=== PATIENT | male | born 1975 | race Caucasian/White ===

== ENCOUNTER 2018-01-07 15:29 | Emergency (ER) | payer OTHER ==
--- NOTE | 2018-01-07 16:54 | Emergency Department Report ---
HPI - General Chief Complaint: Upper Respiratory Infection Time Seen by Provider: 01/07/18 16:53 - HPI HPI: Patient presents to the emergency room with complaints of rash and cough 2 weeks. Patient said he has a rash on his body and he is resided in detention and they started him on steroid but only given for 2 days. He said rash spread and he is very itchy. He states that he is having chills and feeling like he has a fever. He states that he has nasal congestion runny nose and a dry cough that they have been treated for 2 weeks but not placed on any antibiotic. Patient denies having any x-ray. He is having generalized aching in 7 out of 10 which. Patient denies any new medication except he said he took some Motrin a couple weeks ago but he had taken Motrin in the past. He denies any medical problem or any autoimmune disease or immunodeficiency. ED Past Medical Hx - Past Medical History Previous Medical History?: Yes - Surgical History Past Surgical History?: No - Family History Family history: no significant - Social History Smoking Status: Never Smoker Substance Use Type: None - Medications Home Medications: Home Medications Medication Instructions Recorded Confirmed Last Taken Type Colloidal Oatmeal [Eucerin Eczema 226 gm TP BID #2 cream..g. 01/07/18 Unknown Rx Relief] Prednisone [predniSONE 10 mg 10 mg PO .TAPER #42 tab.ds.pk 01/07/18 Unknown Rx (6-Day Pack, 21 Tabs)] Sulfamethoxazole/Trimethoprim 1 each PO DAILY #10 tablet 01/07/18 Unknown Rx [Bactrim DS TAB] ED Review of Systems ROS: Stated complaint: RASH/FEVER Other details as noted in HPI Comment: All other systems reviewed and negative Constitutional: chills, fever Eyes: denies: eye pain, eye discharge ENT: congestion. denies: ear pain, throat pain Respiratory: cough. denies: orthopnea, shortness of breath, SOB with exertion, SOB at rest, stridor, wheezing Cardiovascular: denies: chest pain, palpitations, dyspnea on exertion, edema, syncope, paroxysmal nocturnal dyspnea Gastrointestinal: denies: abdominal pain, nausea, vomiting Genitourinary: denies: dysuria, hematuria Musculoskeletal: arthralgia. denies: back pain, joint swelling, myalgia Skin: rash, pruritus Neurological: denies: headache Physical Exam - Physical Exam Vital Signs: Vital Signs 01/07/18 15:47 Temperature 99.9 F H Pulse Rate 108 H Respiratory 16 Rate Blood Pressure 118/58 O2 Sat by Pulse 96 Oximetry Vital Signs 01/07/18 01/07/18 01/07/18 15:47 19:38 19:46 Temperature 99.9 F H 101.5 F H Pulse Rate 108 H 103 H Respiratory 16 18 18 Rate Blood Pressure 118/58 Blood Pressure 130/61 [Left] O2 Sat by Pulse 96 100 Oximetry Vital Signs 01/07/18 01/07/18 01/07/18 15:47 19:38 19:46 Temperature 99.9 F H 101.5 F H Pulse Rate 108 H 103 H Respiratory 16 18 18 Rate Blood Pressure 118/58 Blood Pressure 130/61 [Left] O2 Sat by Pulse 96 100 Oximetry 01/07/18 20:39 Temperature 99.7 F H Pulse Rate 101 H Respiratory 20 Rate Blood Pressure Blood Pressure 131/75 [Left] O2 Sat by Pulse 99 Oximetry General: This is a 42-year-old male that is nontoxic in appearance. Physical Exam: Head: Normocephalic, atraumatic, no abrasion, no bruising and no contusion. Eyes: Biateral pupils equal and reactive to light, bilateral EOM intact.. Bilateral conjunctival and sclera without injection, normal accommodation. No nystagmus Mouth: Mucosa dry, no pharyngeal exudate or erythema. No peritonsillar abscesses. Uvula is midline and oral airways patent. Ears: Bilateral TMs are congested . Bilateral EAC without any redness swelling or drainage. No mastoid bone tenderness Nose: Bilateral nasal mucosa congested with clear drainage,Maxillary and frontal sinuses non-tender to palpate. Neck: Supple, No Cervical adenopathy, full range of motion and no C-spine tenderness. No swelling or tracheal deviation normal reflexes Cardiovascular: S1, S2. Tachycardic at 108. Regular rhythm No murmur. Capillary refill is less then 3 seconds. Lungs: Clear to auscultate bilaterally. No rhonchi, wheezes or rales. No chest wall tenderness. No chest contusion. No bruising to chest. Dry cough MSK: Strength 5/5 in all extremities. No joint deformity or crepitus. Normal inspection. Full range of motion to all extremities. No laceration, abrasion or ecchymotic area noted. Abdomen: Non-tender to palpate in all quadrants, no guarding or rebound tenderness, positive bowel sounds in all quadrants. No CVA tenderness. No hernia, bruit or mass. No rigidity or distention. Extremities: No clubbing, cyanosis or edema. +2 pulses. No neurovascular compromise Skin: Patient with scaling, generalize to body surface. Areas of erythema that is warm to touch. Noted areas the patient has been itching extensively. No drainage noted. No indurated areas. Some areas to the skin with erythema is tender to palpate. Neurological: GCS at 15, Pt is alert and oriented 3 speech is clear . Bilateral hand engineer second assistant strong and equal. Normal gait. Negative Romberg and no pronator drift. Normal Reflexes. No motor or sensory deficit Back: No vertebral tenderness, no paraspinal tenderness. Ambulates without any difficulties. Psych: Normal mood and behavior ED Course Vital Signs 01/07/18 15:47 Temperature 99.9 F H Pulse Rate 108 H Respiratory 16 Rate Blood Pressure 118/58 O2 Sat by Pulse 96 Oximetry Vital Signs 01/07/18 01/07/18 01/07/18 15:47 19:38 19:46 Temperature 99.9 F H 101.5 F H Pulse Rate 108 H 103 H Respiratory 16 18 18 Rate Blood Pressure 118/58 Blood Pressure 130/61 [Left] O2 Sat by Pulse 96 100 Oximetry - Reevaluation(s) Reevaluation #1: 01/07/18 19:05 Patient is given normal saline 1 L initially and emergency room upon arrival. He was given Solu-Medrol 125 mg IV, fluconazole for injured milligrams IV, Benadryl 50 mg IV and clindamycin 900 mg IV after blood cultures and labs were drawn. Itching has decreased. I collaborated with Dr. Parrish and patient presentation, clinical findings and and treatment plan and is in agreement. Reevaluation #2: 01/07/18 19:45 Patient lactic acid came back at 2.2 and sepsis protocol called since patient temperature is increased in now greater than 101. Heart rate is a 103. Sepsis protocol initiated. Patient given IV fluid. Dr. Medeiros has left for the day therefore I spoke with Dr. Moreau who spoke with Dr. Medeiros via followed and it was decided the patient will be admitted. Dr. Moreau will notify Dr. Nair who is the hospitalist. Patient white count is elevated with other minimal abnormalities and CBC, minimal abnormalities and chemistry, minimal abnormalities in the urine. Patient was given additional Tylenol 975 mg by mouth for fever. Reevaluation #3: 01/07/18 20:42 Dr. Nair's outpatient and decided the patient is with psoriasis, generalized and can be discharged home. He spoke with patient at [facility]. Patient is in custody of [facility]. he evaluated and decided that patient can be discharged home on medication Reevaluation #4: 01/07/18 20:48 Vital signs are better. Patient aware that he will be discharged back to facility. ED Medical Decision Making - Lab Data Result diagrams: 01/07/18 18:34 01/07/18 18:34 Lab Results 01/07/18 01/07/18 01/07/18 Range/Units 17:45 18:34 18:34 WBC 13.7 H (4.5-11.0) K/mm3 RBC 5.24 H (3.65-5.03) M/mm3 Hgb 15.0 (11.8-15.2) gm/dl Hct 46.5 H (35.5-45.6) % MCV 89 (84-94) fl MCH 29 (28-32) pg MCHC 32 (32-34) % RDW 14.0 (13.2-15.2) % Plt Count 360 (140-440) K/mm3 Lymph % (Auto) 18.9 (13.4-35.0) % [place] % (Auto) 15.7 H (0.0-7.3) % Eos % (Auto) 3.3 (0.0-4.3) % Baso % (Auto) 0.1 (0.0-1.8) % Lymph # 2.6 (1.2-5.4) K/mm3 [place] # 2.2 H (0.0-0.8) K/mm3 Eos # 0.5 H (0.0-0.4) K/mm3 Baso # 0.0 (0.0-0.1) K/mm3 Seg Neutrophils % 62.0 (40.0-70.0) % Seg Neutrophils # 8.5 H (1.8-7.7) K/mm3 PT (12.2-14.9) Sec. INR (0.87-1.13) Sodium 134 L (137-145) mmol/L Potassium 4.5 (3.6-5.0) mmol/L Chloride 94.7 L (98-107) mmol/L Carbon Dioxide 26 (22-30) mmol/L Anion Gap 18 mmol/L BUN 13 (9-20) mg/dL Creatinine 1.0 (0.8-1.5) mg/dL Estimated GFR > 60 ml/min BUN/Creatinine Ratio 13 % Glucose 136 H (75-100) mg/dL Lactic Acid (0.7-2.0) mmol/L Calcium 8.3 L (8.4-10.2) mg/dL Total Bilirubin 0.60 (0.1-1.2) mg/dL AST 37 (5-40) units/L ALT 81 H (7-56) units/L Alkaline Phosphatase 47 (35-129) units/L Total Protein 6.2 L (6.3-8.2) g/dL Albumin 3.5 L (3.9-5) g/dL Albumin/Globulin Ratio 1.3 % Urine Color Vilma (Yellow) Urine Turbidity Clear (Clear) Urine pH 5.0 (5.0-7.0) Ur Specific [place] 1.027 (1.003-1.030) Urine Protein 30 mg/dl (Negative) mg/dL Urine Glucose (UA) Neg (Negative) mg/dL Urine Ketones Tr (Negative) mg/dL Urine Blood Neg (Negative) Urine Nitrite Neg (Negative) Urine Bilirubin Neg (Negative) Urine Urobilinogen 4.0 (<2.0) mg/dL Ur Leukocyte Esterase Neg (Negative) Urine WBC (Auto) 3.0 (0.0-6.0) /HPF Urine RBC (Auto) 2.0 (0.0-6.0) /HPF Urine Bacteria (Auto) 1+ (Negative) /HPF Urine Mucus 2+ /HPF 01/07/18 01/07/18 Range/Units 18:34 20:00 WBC (4.5-11.0) K/mm3 RBC (3.65-5.03) M/mm3 Hgb (11.8-15.2) gm/dl Hct (35.5-45.6) % MCV (84-94) fl MCH (28-32) pg MCHC (32-34) % RDW (13.2-15.2) % Plt Count (140-440) K/mm3 Lymph % (Auto) (13.4-35.0) % [place] % (Auto) (0.0-7.3) % Eos % (Auto) (0.0-4.3) % Baso % (Auto) (0.0-1.8) % Lymph # (1.2-5.4) K/mm3 [place] # (0.0-0.8) K/mm3 Eos # (0.0-0.4) K/mm3 Baso # (0.0-0.1) K/mm3 Seg Neutrophils % (40.0-70.0) % Seg Neutrophils # (1.8-7.7) K/mm3 PT 14.6 (12.2-14.9) Sec. INR 1.08 (0.87-1.13) Sodium (137-145) mmol/L Potassium (3.6-5.0) mmol/L Chloride (98-107) mmol/L Carbon Dioxide (22-30) mmol/L Anion Gap mmol/L BUN (9-20) mg/dL Creatinine (0.8-1.5) mg/dL Estimated GFR ml/min BUN/Creatinine Ratio % Glucose (75-100) mg/dL Lactic Acid 2.20 H* (0.7-2.0) mmol/L Calcium (8.4-10.2) mg/dL Total Bilirubin (0.1-1.2) mg/dL AST (5-40) units/L ALT (7-56) units/L Alkaline Phosphatase (35-129) units/L Total Protein (6.3-8.2) g/dL Albumin (3.9-5) g/dL Albumin/Globulin Ratio % Urine Color (Yellow) Urine Turbidity (Clear) Urine pH (5.0-7.0) Ur Specific [place] (1.003-1.030) Urine Protein (Negative) mg/dL Urine Glucose (UA) (Negative) mg/dL Urine Ketones (Negative) mg/dL Urine Blood (Negative) Urine Nitrite (Negative) Urine Bilirubin (Negative) Urine Urobilinogen (<2.0) mg/dL Ur Leukocyte Esterase (Negative) Urine WBC (Auto) (0.0-6.0) /HPF Urine RBC (Auto) (0.0-6.0) /HPF Urine Bacteria (Auto) (Negative) /HPF Urine Mucus /HPF Blood cultures and Urine culture pending - Radiology Data Radiology results: report reviewed Chest x-ray revealed no acute cardiopulmonary findings - Medical Decision Making ED course: Patient here from the care home facility supervised by fire prevention officer and report that he's been having cold and cough 2 weeks with fever and chills and also developed a rash that is very itchy all over his body and it spreading. Patient and with widespread rash confluent in nature, scaling and appears to have superimposed cellulitis. Patient was given Benadryl 50 mg IV to help with itching, Solu-Medrol 125 mg IV, IV fluid normal saline started. Patient lab work was abnormal to include lactic acid is 2.2 and he was given an 2 L of IV fluid, Tylenol 975 mg IV because temperature was greater than 101 which is higher than when he came in. I spoke with Dr. Moreau regarding patient condition and she spoke with Dr. Nair who saw patient and decided the patient can go home on steroids, antibiotic and emollient. Patient remained stable throughout ED course. Please refer to laboratory section for details on lab and radiology section for details on chest x-ray. Patient's CBC was abnormal value with elevated white count and other minimal abnormality, chemistry with minimal abnormalities, urinalysis with minimal abnormalities. Blood cultures and urine culture sent. Coags are stable and venous pH is pending. Patient appears to be stable and vital signs are stable. Patient was given information on laboratory results and also on chest x-ray results and he voiced understanding and Patient with upper respiratory with cough and congestion, acute rash with cellulitis, pruritic dermatitis, fever and chills and generalized aching.Lactic acidosis and leukocytosis. Critical care attestation.: If time is entered above; I have spent that time in minutes in the direct care of this critically ill patient, excluding procedure time. ED Disposition Clinical Impression: Rash and nonspecific skin eruption, Arthralgia of multiple sites, bilateral, Fever and chills, Pruritic dermatitis, Lactic acid acidosis, URI with cough and congestion Cellulitis Qualifiers: Site of cellulitis: unspecified site Qualified Code(s): L03.90 - Cellulitis, unspecified Leukocytosis, unspecified Qualifiers: Leukocytosis type: unspecified Qualified Code(s): D72.829 - Elevated white blood cell count, unspecified Disposition: OP ADMIT IP TO THIS HOSP Is pt being admited?: Yes Does the pt Need Aspirin: No Condition: Stable Prescriptions: Colloidal Oatmeal [Eucerin Eczema Relief] 226 gm TP BID #2 cream..g. Prednisone [predniSONE 10 mg (6-Day Pack, 21 Tabs)] 10 mg PO .TAPER #42 tab.ds.pk Sulfamethoxazole/Trimethoprim [Bactrim DS TAB] 1 each PO DAILY #10 tablet Referrals: PRIMARY CARE, [Primary Care Provider] - 3-5 Days
[2018-01-07] MEDS ORDERED: VIAFLEX EMPTY CONTAINER IV ONE ×2 (17:42→17:46)
[2018-01-07] MEDS ORDERED: DIFLUCAN IV ONE ×2 (17:42→17:46)
[2018-01-07] MEDS ORDERED: BENADRYL IV ONE (17:42)
[2018-01-07] MEDS ORDERED: NACL 0.9% 1000 ML 1,000 ML IV ONE ×2 (17:42→19:53)
[2018-01-07] MEDS ORDERED: CLEOCIN 900 MG/50 mL 900 MG/50 ML BAG IV ONE (17:44)
[2018-01-07 18:49] LABS: Basophils % (Auto) 0.1 % (0.0-1.8); Eosinophils # (Auto) 0.5 K/mm3 (0.0-0.4); Eosinophils % (Auto) 3.3 % (0.0-4.3); Hematocrit 46.5 % (35.5-45.6); Lymphocytes # (Auto) 2.6 K/mm3 (1.2-5.4); Lymphocytes % (Auto) 18.9 % (13.4-35.0); Mean Corpuscular HGB Conc 32 % (32-34); Mean Corpuscular Hemoglobin 29 pg (28-32); Mean Corpuscular Volume 89 fl (84-94); Monocytes # (Auto) 2.2 K/mm3 (0.0-0.8); Monocytes % (Auto) 15.7 % (0.0-7.3); Platelet Count 360 K/mm3 (140-440); Red Blood Count 5.24 M/mm3 (3.65-5.03)
--- NOTE | 2018-01-07 18:52 | XRay Report ---
FINAL REPORT PROCEDURE: Chest. TECHNIQUE: PA and lateral views. HISTORY: cough and fever x 2 weeks COMPARISON: None. FINDINGS: The heart and mediastinum appear normal. The lungs are clear and well expanded. There are no pleural effusions. The soft tissues and regional skeleton are unremarkable. IMPRESSION: No evidence of acute disease.
[2018-01-07 19:00] LABS: Bacteria,Urine 1+ /HPF (Negative); Bilirubin,Urine NEG (Negative); Blood,Urine NEG (Negative); Color,Urine Amber (Yellow); Mucus,Urine 2+ /HPF
[2018-01-07] MEDS ORDERED: DIFLUCAN 200 ML IV ONE (19:00)
[2018-01-07 19:14] LABS: Alanine Aminotransferase 81 units/L (7-56); Albumin 3.5 g/dL (3.9-5); BUN/Creatinine Ratio 13; Blood Urea Nitrogen 13 mg/dL (9-20); Calcium 8.3 mg/dL (8.4-10.2); Hemolysis Index 0
[2018-01-07] MEDS ORDERED: TYLENOL ONE (19:43)
[2018-01-07] MEDS ORDERED: TYLENOL PO ONE (19:43)
--- NOTE | 2018-01-07 20:20 | History and Physical Report ---
Medications and Allergies Allergies Allergy/AdvReac Type Severity Reaction Status Date / Time ibuprofen Allergy Hives Verified 01/07/18 15:46 Home Medications Medication Instructions Recorded Confirmed Last Taken Type Colloidal Oatmeal [Eucerin Eczema 226 gm TP BID #2 cream..g. 01/07/18 Unknown Rx Relief] Prednisone [predniSONE 10 mg 10 mg PO .TAPER #42 tab.ds.pk 01/07/18 Unknown Rx (6-Day Pack, 21 Tabs)] Sulfamethoxazole/Trimethoprim 1 each PO DAILY #10 tablet 01/07/18 Unknown Rx [Bactrim DS TAB] Active Meds: Active Medications Fluconazole (Diflucan) 200 mls @ 100 mls/hr IV ONCE ONE Stop: 01/07/18 20:59 Last Admin: 01/07/18 19:15 Dose: 100 mls/hr Sodium Chloride (Nacl 0.9% 1000 Ml) 1,000 mls @ 999 mls/hr IV BOLUS ONE Stop: 01/07/18 20:53 Last Admin: 01/07/18 20:00 Dose: 999 mls/hr Exam - Constitutional Vitals: Temp Pulse Resp BP Pulse Ox 101.5 F H 103 H 18 130/61 100 01/07/18 19:38 01/07/18 19:38 01/07/18 19:46 01/07/18 19:38 01/07/18 19:38 Results - Labs CBC & Chem 7: 01/07/18 18:34 01/07/18 18:34 Labs: Abnormal lab results 01/07/18 01/07/18 01/07/18 Range/Units 18:34 18:34 18:34 WBC 13.7 H (4.5-11.0) K/mm3 RBC 5.24 H (3.65-5.03) M/mm3 Hct 46.5 H (35.5-45.6) % [place] % (Auto) 15.7 H (0.0-7.3) % [place] # 2.2 H (0.0-0.8) K/mm3 Eos # 0.5 H (0.0-0.4) K/mm3 Seg Neutrophils # 8.5 H (1.8-7.7) K/mm3 Sodium 134 L (137-145) mmol/L Chloride 94.7 L (98-107) mmol/L Glucose 136 H (75-100) mg/dL Lactic Acid 2.20 H* (0.7-2.0) mmol/L Calcium 8.3 L (8.4-10.2) mg/dL ALT 81 H (7-56) units/L Total Protein 6.2 L (6.3-8.2) g/dL Albumin 3.5 L (3.9-5) g/dL
[2018-01-07 20:21] LABS: INR 1.08 (0.87-1.13)
[2018-01-07 20:41] VITALS: BP 131/75
== END 2018-01-07 21:15 ==
LOC: ED 15:29
DX: E87.2 Acidosis (principal); J06.9 Acute upper respiratory infection, unspecified; D72.829 Elevated white blood cell count, unspecified; R21 Rash and other nonspecific skin eruption; M25.50 Pain in unspecified joint; L03.90 Cellulitis, unspecified
CPT/HCPCS: 36415; 71046; 80053; 81001; 82140; 85025; 85610; 87040; 87086; 96361; 96365; 96367; 96375; 99284; J1200; J1450; J2930; J7030

== ENCOUNTER 2018-01-22 22:32 | Inpatient (IN) | payer OTHER ==
[2018-01-22] MEDS ORDERED: NACL 0.9% 500 ML 500 ML IV ONE (22:47)
[2018-01-22 23:40] LABS: INR 1.13 (0.87-1.13)
[2018-01-22 23:45] LABS: Hematocrit 47.3 % (35.5-45.6); Hemoglobin 15.5 gm/dl (11.8-15.2); Mean Corpuscular HGB Conc 33 % (32-34); Mean Corpuscular Hemoglobin 29 pg (28-32); Mean Corpuscular Volume 89 fl (84-94); Platelet Count 324 K/mm3 (140-440); Red Blood Count 5.32 M/mm3 (3.65-5.03); Red Cell Distribution Width 14.3 % (13.2-15.2)
[2018-01-22 23:50] LABS: Alanine Aminotransferase 25 units/L (7-56); Albumin 3.5 g/dL (3.9-5); BUN/Creatinine Ratio 14; Blood Urea Nitrogen 15 mg/dL (9-20); Calcium 8.5 mg/dL (8.4-10.2); Hemolysis Index 11
--- NOTE | 2018-01-22 23:52 | XRay Report ---
FINAL REPORT PROCEDURE: Portable AP chest x-ray TECHNIQUE: Chest radiograph portable AP view. CPT 40292 HISTORY: sepsis protocol COMPARISON: Prior chest x-ray 01/07/2018 FINDINGS: Heart: Normal. Mediastinum/Vessels: Normal. Lungs/Pleural space: Normal. Bony thorax: No acute osseous abnormality. Life support devices: None. IMPRESSION: No acute cardiopulmonary abnormality.
[2018-01-23] MEDS ORDERED: NACL 0.9% 1000 ML IV ONE (00:34)
[2018-01-23] MEDS ORDERED: ZOFRAN IV ONE (00:37)
--- NOTE | 2018-01-23 01:48 | Emergency Department Report ---
HPI - General Chief Complaint: Fever Time Seen by Provider: 01/23/18 00:23 - HPI HPI: Room 19 The patient is a 42-year-old male presenting with chief complaint of rash and fever. The patient states 1.5 months ago after taking pain medication for back and shoulder he developed a rash on bilateral upper extremities and bilateral lower extremities within the week the rash began to encompass his entire body. The patient states she's been to the ED twice for evaluation with his rash is only worsened. The patient complains of weakness for the past 2 days in addition to nausea and a cough that is nonproductive. Patient also complained of shortness of breath for the past 5 days and left chest pain for the past 2 hours. Patient describes chest pain as soreness from his frequent gagging Location: [See above] Duration: 1.5 months Quality: Weakness Severity: Moderate Modifying factors: [see above] Context: [see above] Mode of transportation: [not driving] ED Past Medical Hx - Past Medical History Previous Medical History?: No - Surgical History Past Surgical History?: No - Family History Family history: no significant - Social History Smoking Status: Never Smoker Substance Use Type: None - Medications Home Medications: Home Medications Medication Instructions Recorded Confirmed Last Taken Type Colloidal Oatmeal [Eucerin Eczema 226 gm TP BID #2 cream..g. 01/07/18 Unknown Rx Relief] Prednisone [predniSONE 10 mg 10 mg PO .TAPER #42 tab.ds.pk 01/07/18 Unknown Rx (6-Day Pack, 21 Tabs)] Sulfamethoxazole/Trimethoprim 1 each PO DAILY #10 tablet 01/07/18 Unknown Rx [Bactrim DS TAB] ED Review of Systems ROS: Stated complaint: FEVER; RASH Other details as noted in HPI Constitutional: fever, weakness Respiratory: cough, shortness of breath Cardiovascular: chest pain Gastrointestinal: nausea. denies: vomiting Musculoskeletal: myalgia Skin: rash Physical Exam - Physical Exam Vital Signs: Vital Signs 01/22/18 01/22/18 01/23/18 22:34 22:40 00:56 Temperature 101.3 F H 101.3 F H 100.0 F H Pulse Rate 127 H 129 H 124 H Respiratory 18 18 14 Rate Blood Pressure 93/54 93/54 Blood Pressure 98/59 [Left] O2 Sat by Pulse 100 100 100 Oximetry Physical Exam: GENERAL: The patient is well-developed well-nourished male lying on stretcher in handcuffs not appear to be in acute distress. [] HEENT: Normocephalic. Atraumatic. Extraocular motions are intact. Patient has moist mucous membranes. NECK: Supple. No meningitic signs are noted. Trachea midline CHEST/LUNGS: Clear to auscultation. There is no respiratory distress noted. HEART/CARDIOVASCULAR: Regular. There is no tachycardia. There is no gallop rub or murmur. ABDOMEN: Abdomen is soft, nontender. Patient has normal bowel sounds. There is no abdominal distention. SKIN: There is a global erythematous indurated rash encompassing the patient's body. Some regions are dry and scaly NEURO: The patient is awake, alert, and oriented. The patient is cooperative. The patient has normal speech MUSCULOSKELETAL: There is no evidence of acute injury. ED Course Vital Signs 01/22/18 01/22/18 01/23/18 22:34 22:40 00:56 Temperature 101.3 F H 101.3 F H 100.0 F H Pulse Rate 127 H 129 H 124 H Respiratory 18 18 14 Rate Blood Pressure 93/54 93/54 Blood Pressure 98/59 [Left] O2 Sat by Pulse 100 100 100 Oximetry - Central Line Placement Right IJ Consent Obtained: verbal consent Time Out Performed: No Patient Placed on Monitor/Pulse Ox: Yes Prep: mask, gown, gloves Central Line Prep: Chlorhexidine scrub Amount of Anesthesia Used (mls): 3 Ultrasound Used for Placement: Yes Central Line Lumen Inserted: triple Bloods Obtained for Lab: Yes Central Line Position: good blood return, all ports aspirated, flus, sutured in place with 2-0 Dressing Applied: Tegaderm Post Procedure X-Ray: tip of catheter in good p Patient Tolerated Procedure: well Complications: other (arterial puncture on initial attempt. Needle was withdrawn and pressure held. Patient hemostatic) ED Medical Decision Making - Lab Data Result diagrams: 01/22/18 23:05 01/22/18 23:05 Laboratory Tests 01/22/18 01/22/18 01/22/18 23:05 23:05 23:05 WBC 12.8 H RBC 5.32 H Hgb 15.5 H Hct 47.3 H MCV 89 MCH 29 MCHC 33 RDW 14.3 Plt Count 324 [place] % (Auto) Analytical Strategist Add Manual Diff Complete Total Counted 100 Seg Neuts % (Manual) 54.0 Band Neutrophils % 18.0 Lymphocytes % (Manual) 6.0 L Reactive Lymphs % (Man) 1.0 Monocytes % (Manual) 17.0 H Eosinophils % (Manual) 1.0 Basophils % (Manual) 0 Metamyelocytes % 0 Myelocytes % 3.0 Promyelocytes % 0 Blast Cells % 0 Nucleated RBC % Not Reportable Seg Neutrophils # Man 6.9 Band Neutrophils # 2.3 Lymphocytes # (Manual) 0.8 L Abs React Lymphs (Man) 0.1 Monocytes # (Manual) 2.2 H Eosinophils # (Manual) 0.1 Basophils # (Manual) 0.0 Metamyelocytes # 0.0 Myelocytes # 0.4 Promyelocytes # 0.0 Blast Cells # 0.0 WBC Morphology Not Reportable Hypersegmented Neuts Not Reportable Hyposegmented Neuts Not Reportable Hypogranular Neuts Not Reportable Smudge Cells Not Reportable Toxic Granulation Not Reportable Toxic Vacuolation Rare Dohle Bodies Not Reportable Pelger-Huet Anomaly Not Reportable René Rods Not Reportable Platelet Estimate Consistent w auto Clumped Platelets Not Reportable Plt Clumps, EDTA Not Reportable Large Platelets Not Reportable Giant Platelets Not Reportable Platelet Satelliting Not Reportable Plt Morphology Comment Not Reportable RBC Morphology Not Reportable Dimorphic RBCs Not Reportable Polychromasia Not Reportable Hypochromasia Not Reportable Poikilocytosis Not Reportable Anisocytosis Not Reportable Microcytosis Not Reportable Macrocytosis Not Reportable Spherocytes Not Reportable Pappenheimer Bodies Not Reportable Sickle Cells Not Reportable Target Cells Not Reportable Tear Drop Cells Not Reportable Ovalocytes Not Reportable Helmet Cells Not Reportable Weaver-[place] Bodies Not Reportable Gast[place] Rings Not Reportable Means Cells Not Reportable Bite Cells Not Reportable Crenated Cell Not Reportable Elliptocytes Not Reportable Acanthocytes (Spur) Not Reportable Rouleaux Not Reportable Hemoglobin C Crystals Not Reportable Schistocytes Not Reportable Malaria parasites Not Reportable Alonzo Bodies Not Reportable Hem Pathologist Commnt No PT 15.1 H INR 1.13 VBG pH Sodium 136 L Potassium 4.5 Chloride 97.5 L Carbon Dioxide 22 Anion Gap 21 BUN 15 Creatinine 1.1 Estimated GFR > 60 BUN/Creatinine Ratio 14 Glucose 150 H Lactic Acid Calcium 8.5 Total Bilirubin 0.80 AST 15 ALT 25 Alkaline Phosphatase 48 Total Protein 5.4 L Albumin 3.5 L Albumin/Globulin Ratio 1.8 01/22/18 01/22/18 23:05 23:05 WBC RBC Hgb Hct MCV MCH MCHC RDW Plt Count [place] % (Auto) Add Manual Diff Total Counted Seg Neuts % (Manual) Band Neutrophils % Lymphocytes % (Manual) Reactive Lymphs % (Man) Monocytes % (Manual) Eosinophils % (Manual) Basophils % (Manual) Metamyelocytes % Myelocytes % Promyelocytes % Blast Cells % Nucleated RBC % Seg Neutrophils # Man Band Neutrophils # Lymphocytes # (Manual) Abs React Lymphs (Man) Monocytes # (Manual) Eosinophils # (Manual) Basophils # (Manual) Metamyelocytes # Myelocytes # Promyelocytes # Blast Cells # WBC Morphology Hypersegmented Neuts Hyposegmented Neuts Hypogranular Neuts Smudge Cells Toxic Granulation Toxic Vacuolation Dohle Bodies Pelger-Huet Anomaly René Rods Platelet Estimate Clumped Platelets Plt Clumps, EDTA Large Platelets Giant Platelets Platelet Satelliting Plt Morphology Comment RBC Morphology Dimorphic RBCs Polychromasia Hypochromasia Poikilocytosis Anisocytosis Microcytosis Macrocytosis Spherocytes Pappenheimer Bodies Sickle Cells Target Cells Tear Drop Cells Ovalocytes Helmet Cells Weaver-[place] Bodies Gast[place] Rings Denise Cells Bite Cells Crenated Cell Elliptocytes Acanthocytes (Spur) Rouleaux Hemoglobin C Crystals Schistocytes Malaria parasites Alonzo Bodies Hem Pathologist Commnt PT INR VBG pH 7.319 L Sodium Potassium Chloride Carbon Dioxide Anion Gap BUN Creatinine Estimated GFR BUN/Creatinine Ratio Glucose Lactic Acid 3.60 H* Calcium Total Bilirubin AST ALT Alkaline Phosphatase Total Protein Albumin Albumin/Globulin Ratio - EKG Data -: EKG Interpreted by Me EKG shows normal: sinus rhythm Rate: tachycardia (116 bpm) - EKG Data When compared to previous EKG there are: previous EKG unavailable Interpretation: nonspecific ST-T wave elvia (T-wave inversion in lead 3) - Radiology Data Radiology results: image reviewed (chest x-ray #1) interpreted by me: Chest x-ray #1-no focal infiltrates, no pneumothorax [facility] [address] [place] [address] XRay Report Signed Patient: OBI ALBERTS MR#: [id number] : 1975 Acct:[id number] Age/Sex: 42 / M ADM Date: 01/22/18 Loc: ED Attending Dr: Ordering Physician: BJ GORDON MD Date of Service: 01/22/18 Procedure(s): XR chest 1V ap Accession Number(s): [id number] cc: BJ GORDON MD Fluoro Time In Minutes: FINAL REPORT PROCEDURE: Portable AP chest x-ray TECHNIQUE: Chest radiograph portable AP view. CPT 19706 HISTORY: sepsis protocol COMPARISON: Prior chest x-ray 01/07/2018 FINDINGS: Heart: Normal. Mediastinum/Vessels: Normal. Lungs/Pleural space: Normal. Bony thorax: No acute osseous abnormality. Life support devices: None. IMPRESSION: No acute cardiopulmonary abnormality. Transcribed By: DFN Dictated By: GERA RAPP MD Electronically Authenticated By: GERA RAPP MD Signed Date/Time: 01/22/182347 DD/ 47 TD/TT: 01/22/182347 - Differential Diagnosis Llanes-Markell syndrome, allergic reaction, sepsis, pneumonia, cellulitis, Critical care attestation.: If time is entered above; I have spent that time in minutes in the direct care of this critically ill patient, excluding procedure time. ED Disposition Clinical Impression: Sepsis, Erythematous rash, Fever, Leukocytosis Disposition: OP ADMIT IP TO THIS HOSP Is pt being admited?: Yes Does the pt Need Aspirin: No Condition: Serious Referrals: PRIMARY CARE, [Referring] - 3-5 Days Time of Disposition: 02:55 (hospitalist notified (Dr. Joyce Reid))
[2018-01-23] MEDS ORDERED: VANCOMYCIN 2,000 MG in NACL 0.9% 500 ML 500 ML IV ONE (02:00)
[2018-01-23 02:05] LABS: Band Neutrophils # (Manual) 2.3 K/mm3; Basophils % (Manual) 0 % (0.0-1.8); Myelocytes # (Manual) 0.4 K/mm3; Total Cells Counted 100
[2018-01-23 02:06] LABS: Platelet Estimate Consistent w Auto; Toxic Vacuolation Rare
[2018-01-23] MEDS: ZOSYN/NS 4.5GM/100ML 4.5 GM/100 ML VIAL IV SCH ×2 (02:40→11:19)
[2018-01-23] MEDS ORDERED: ZOFRAN ONE (02:46)
--- NOTE | 2018-01-23 03:15 | XRay Report ---
FINAL REPORT PROCEDURE: XR CHEST 1V AP TECHNIQUE: Chest radiograph anteroposterior view. CPT 07899 HISTORY: status post central line placement COMPARISON: No prior studies are available for comparison. FINDINGS: Heart: Normal. Mediastinum/Vessels: Normal. Lungs/Pleural space: Lungs are expanded and clear. There are no infiltrates, effusions or pneumothoraces.. Bony thorax: No acute osseous abnormality. Life support devices: There is a right-sided central venous catheter. The tip is in the superior vena cava.. IMPRESSION: No acute cardiopulmonary abnormality. Central venous catheter is in proper position.
[2018-01-23] MEDS ORDERED: PERCOCET 5/325 PO PRN (04:10)
[2018-01-23] MEDS ORDERED: SODIUM CHLORIDE FLUSH SYRINGE 10 ML IV PRN (04:10)
[2018-01-23] MEDS ORDERED: ZOFRAN IV PRN (04:10)
[2018-01-23] MEDS ORDERED: TYLENOL ONE (04:48)
[2018-01-23 05:23] LABS: Bilirubin,Urine NEG (Negative); Blood,Urine NEG (Negative); Color,Urine Yellow (Yellow); Hyaline Casts,Urine 4 /LPF; Mucus,Urine FEW /HPF; Protein,Urine <15 mg/dL mg/dL (Negative)
--- NOTE | 2018-01-23 06:33 | History and Physical Report ---
History of Present Illness Date of examination: 01/23/18 Date of admission: 01/23/18 04:10 History of present illness: 42-year-old man construct a snf for evaluation of rash all over his body. He stated that rash started 1-1/2 months ago. He was seen here twice for evaluation of rash, given Eucerin cream, Benadryl and oral steroids and then antibiotic. He stated that his symptoms have not improved. In fact the rash is now spreading to his face and head. He has light yellow drainage from the rash on his arms and he also complaining of fever and chills, pruritus. No new products Review of systems Constitutional: no weight loss, chills Ears, eyes, nose, mouth and throat: no nasal congestion, no nasal discharge, no sinus pressure, no vision change, no red eye. Neck: No neck pain or rigidity. Cardiovascular: no chest pain, palpitations Respiratory: No cough, shortness of breath Gastrointestinal: no abdominal pain, hematochezia Genitourinary : no dysuria, frequency , no hematuria Musculoskeletal: no joint swelling or muscle ache Integumentary: no no pruritis Neurological: no parathesias, no numbness, no focal weakness Endocrine: no cold or heat intolerance, no polyuria or polydipsia Hematologic/Lymphatic: no easy bruising, no easy bleeding, no gland swelling Allergic/Immunologic: no urticaria, no angioedema. PAST MEDICAL HISTORY: None PAST SURGICAL HISTORY: None SOCIAL HISTORY: Denies alcohol, tobacco, drugs FAMILY HISTORY: Hypertension Medications and Allergies Allergies Allergy/AdvReac Type Severity Reaction Status Date / Time ibuprofen Allergy Hives Verified 01/07/18 15:46 Home Medications Medication Instructions Recorded Confirmed Last Taken Type No Known Home Medications [No 01/23/18 01/23/18 Unknown History Reported Home Medications] Active Meds: Active Medications Acetaminophen (Tylenol) 650 mg PO Q4H PRN PRN Reason: Pain MILD(1-3)/Fever >100.5/MILLAN Enoxaparin Sodium (Lovenox) 40 mg SUB-Q QDAY VICTOR M Piperacillin Sod/Tazobactam Sod (Zosyn/Ns 4.5gm/100ml) 4.5 gm in 100 mls @ 200 mls/hr IV Q8H VICTOR M; Protocol Last Admin: 01/23/18 02:40 Dose: 200 mls/hr Sodium Chloride (Nacl 0.9% 1000 Ml) 1,000 mls @ 150 mls/hr IV DIRECT VICTOR M Ondansetron HCl (Zofran) 4 mg IV Q8H PRN PRN Reason: Nausea And Vomiting Oxycodone/Acetaminophen (Percocet 5/325) 1 tab PO Q6H PRN PRN Reason: Pain, Moderate (4-6) Sodium Chloride (Sodium Chloride Flush Syringe 10 Ml) 10 ml IV BID VICTOR M Sodium Chloride (Sodium Chloride Flush Syringe 10 Ml) 10 ml IV PRN PRN PRN Reason: LINE FLUSH Exam - Physical Exam Narrative exam: Gen. appearance: Patient lying in bed, no apparent distress HEENT: Normocephalic, atraumatic, pupils equally round and reactive to light, extraocular movement intact, and no sclericterus,. No JVD or thyromegaly or nodule,neck supple, no carotid bruit ,mucous membranes moist, no exudate or erythema Heart: S1, S2, regular rate and rhythm Lungs: Clear to auscultation bilaterally, breathing comfortable Abdomen: Positive bowel sounds, nontender, nondistended, no organomegaly Extremity: No edema, cyanosis, clubbing Skin: Diffuse fine erythematous rash all over body, he has some slight yellow skilled , positive drainage No nodules, warm, dry Neuro: Oriented 3, cranial nerves II-12 intact, speech is fluent, motor and sensory intact - Constitutional Vitals: Temp Pulse Resp BP Pulse Ox 102.3 F H 132 H 13 102/35 99 01/23/18 04:48 01/23/18 04:31 01/23/18 04:31 01/23/18 04:31 01/23/18 04:31 Results - Labs CBC & Chem 7: 01/22/18 23:05 01/22/18 23:05 Labs: Abnormal lab results 01/22/18 01/22/18 01/22/18 Range/Units 23:05 23:05 23:05 WBC 12.8 H (4.5-11.0) K/mm3 RBC 5.32 H (3.65-5.03) M/mm3 Hgb 15.5 H (11.8-15.2) gm/dl Hct 47.3 H (35.5-45.6) % Lymphocytes % (Manual) 6.0 L (13.4-35.0) % Monocytes % (Manual) 17.0 H (0.0-7.3) % Lymphocytes # (Manual) 0.8 L (1.2-5.4) K/mm3 Monocytes # (Manual) 2.2 H (0.0-0.8) K/mm3 PT 15.1 H (12.2-14.9) Sec. VBG pH (7.320-7.420) Sodium 136 L (137-145) mmol/L Chloride 97.5 L (98-107) mmol/L Glucose 150 H (75-100) mg/dL Lactic Acid (0.7-2.0) mmol/L Total Protein 5.4 L (6.3-8.2) g/dL Albumin 3.5 L (3.9-5) g/dL Urine WBC (Auto) (0.0-6.0) /HPF 01/22/18 01/22/18 01/23/18 Range/Units 23:05 23:05 04:23 WBC (4.5-11.0) K/mm3 RBC (3.65-5.03) M/mm3 Hgb (11.8-15.2) gm/dl Hct (35.5-45.6) % Lymphocytes % (Manual) (13.4-35.0) % Monocytes % (Manual) (0.0-7.3) % Lymphocytes # (Manual) (1.2-5.4) K/mm3 Monocytes # (Manual) (0.0-0.8) K/mm3 PT (12.2-14.9) Sec. VBG pH 7.319 L (7.320-7.420) Sodium (137-145) mmol/L Chloride (98-107) mmol/L Glucose (75-100) mg/dL Lactic Acid 3.60 H* (0.7-2.0) mmol/L Total Protein (6.3-8.2) g/dL Albumin (3.9-5) g/dL Urine WBC (Auto) 12.0 H (0.0-6.0) /HPF - Imaging and Cardiology Chest x-ray: image reviewed Assessment and Plan Assessment Sepsis Diffuse rash Plan Admit to medicine Status post vancomycin in the emergency room Continue Zosyn,IV fluid, consult infectious disease DVT prophylaxis
[2018-01-23] MEDS: NACL 0.9% 1000 ML 1,000 ML IV SCH ×2 (06:55→14:23)
[2018-01-23] MEDS ORDERED: NACL 0.9% 1000 ML 1,000 ML IV SCH (07:00)
[2018-01-23] MEDS: LOVENOX SUB-Q SCH (11:21)
[2018-01-23] MEDS: SODIUM CHLORIDE FLUSH SYRINGE 10 ML IV SCH ×2 (11:22→21:10)
[2018-01-23] MEDS: TYLENOL PO PRN ×2 (11:45→21:06)
--- NOTE | 2018-01-23 13:07 | Event Note ---
Date: 01/23/18 Pt seen and examined 42-year-old man construct a fdc for evaluation of rash all over his body. cont abx, consulted ID, negative HIV, will follow blood cx and RPR cont current Mx as dictated in H and P.
[2018-01-23] MEDS ORDERED: CUBICIN 600 MG in NACL 0.9% 100 ML IV SCH (18:00)
[2018-01-23] MEDS: LEVAQUIN 500MG/100ML 500 MG/100 ML BAG IV SCH (18:57)
--- NOTE | 2018-01-23 22:53 | Consultation ---
History of Present Illness - Reason for Consult Consult date: 01/23/18 fever and generalized rash Requesting physician: DENISE FLORES - History of Present Illness 42 y/o male prisoner originally from [facility], has been in [place] [facility] for 11 months, came from [facility], admitted on 01/22/18 due to worsening skin rash and fever. Rash started 6 weeks ago. Patient was brought to the ED on and in the ED was felt he had a psoriatic rash and was referred to rheumatology. He was given some antibiotics in correction and rash is not improving. Rash is a fine maculopapular with tiny pustules (sandpaper) all over face, neck, chest, back, abdomen, limbs. It is pruritic and skin is painful and drains upon pressing. He reports fever started a week ago and he had a near syncope episode at the correction. Denies ETOH, drugs, tobacco, sick contacts. In the ED, temp 101.3, HR 124, R 18, O2 sat 100%, BP 93/54. WBC 12.8. Hg 15.5. Plat 324. Seg 54, L 6, M 17. Creat 1.1. Lactate 3.6. UA 12 wbc, moderate LE. RPR neg. HIV neg. CXR neg. Micro: blood cx 01/07 neg 01/22 ngtd urine cx 01/07 10-100K mixed bacteria Abx: zosyn vanco Past History Past Surgical History: No surgical history Social history: no significant social history Family history: no significant family history Medications and Allergies Allergies Allergy/AdvReac Type Severity Reaction Status Date / Time ibuprofen Allergy Hives Verified 01/07/18 15:46 Home Medications Medication Instructions Recorded Confirmed Last Taken Type No Known Home Medications [No 01/23/18 01/23/18 Unknown History Reported Home Medications] Active Meds: Active Medications Acetaminophen (Tylenol) 650 mg PO Q4H PRN PRN Reason: Pain MILD(1-3)/Fever >100.5/MILLAN Last Admin: 01/23/18 21:06 Dose: 650 mg Enoxaparin Sodium (Lovenox) 40 mg SUB-Q QDAY VICTOR M Last Admin: 01/23/18 11:21 Dose: 40 mg Sodium Chloride (Nacl 0.9% 1000 Ml) 1,000 mls @ 150 mls/hr IV DIRECT VICTOR M Last Admin: 01/23/18 14:23 Dose: 150 mls/hr Daptomycin 600 mg/ Sodium (Chloride) 100 mls @ 200 mls/hr IV Q24H VICTOR M; Protocol Last Admin: 01/23/18 19:48 Dose: 200 mls/hr Levofloxacin/Dextrose (Levaquin 500mg/100ml) 500 mg in 100 mls @ 100 mls/hr IV Q24HR VICTOR M; Protocol Last Admin: 01/23/18 18:57 Dose: 100 mls/hr Ondansetron HCl (Zofran) 4 mg IV Q8H PRN PRN Reason: Nausea And Vomiting Oxycodone/Acetaminophen (Percocet 5/325) 1 tab PO Q6H PRN PRN Reason: Pain, Moderate (4-6) Sodium Chloride (Sodium Chloride Flush Syringe 10 Ml) 10 ml IV BID VICTOR M Last Admin: 01/23/18 21:10 Dose: 10 ml Sodium Chloride (Sodium Chloride Flush Syringe 10 Ml) 10 ml IV PRN PRN PRN Reason: LINE FLUSH Review of Systems All systems: negative (as per HPI rest neg) Physical Examination - Physical Exam Narrative exam: Alert in NAD NC/AT SANTOSH, clear OP no oral lesions Neck no JVD, no LNs Lungs CTA geovanny CV tachycardic Abdomen soft NT ND Ext no e/c/c Skin - fine maculopapular rash with tiny pustules (sandpaper) all over face, neck, chest, back, abdomen, limbs. - Constitutional Vitals: Vital Signs Temp Pulse Resp BP Pulse Ox 100.6 F H 123 H 18 116/54 99 01/23/18 20:05 01/23/18 20:05 01/23/18 20:05 01/23/18 20:05 01/23/18 20:05 Temperature -Last 24 Hours Temperature 100.6 F Temperature 101.4 F Temperature 102.7 F Temperature 100.5 F Temperature 100.9 F Temperature 102.3 F Temperature 99.4 F Temperature 100.0 F Results - Labs CBC & Chem 7: 01/22/18 23:05 01/22/18 23:05 Labs: Abnormal lab results 01/22/18 01/22/18 01/22/18 Range/Units 23:05 23:05 23:05 WBC 12.8 H (4.5-11.0) K/mm3 RBC 5.32 H (3.65-5.03) M/mm3 Hgb 15.5 H (11.8-15.2) gm/dl Hct 47.3 H (35.5-45.6) % Lymphocytes % (Manual) 6.0 L (13.4-35.0) % Monocytes % (Manual) 17.0 H (0.0-7.3) % Lymphocytes # (Manual) 0.8 L (1.2-5.4) K/mm3 Monocytes # (Manual) 2.2 H (0.0-0.8) K/mm3 PT 15.1 H (12.2-14.9) Sec. VBG pH (7.320-7.420) Sodium 136 L (137-145) mmol/L Chloride 97.5 L (98-107) mmol/L Glucose 150 H (75-100) mg/dL Lactic Acid (0.7-2.0) mmol/L Total Protein 5.4 L (6.3-8.2) g/dL Albumin 3.5 L (3.9-5) g/dL Urine WBC (Auto) (0.0-6.0) /HPF 01/22/18 01/22/18 01/23/18 Range/Units 23:05 23:05 04:23 WBC (4.5-11.0) K/mm3 RBC (3.65-5.03) M/mm3 Hgb (11.8-15.2) gm/dl Hct (35.5-45.6) % Lymphocytes % (Manual) (13.4-35.0) % Monocytes % (Manual) (0.0-7.3) % Lymphocytes # (Manual) (1.2-5.4) K/mm3 Monocytes # (Manual) (0.0-0.8) K/mm3 PT (12.2-14.9) Sec. VBG pH 7.319 L (7.320-7.420) Sodium (137-145) mmol/L Chloride (98-107) mmol/L Glucose (75-100) mg/dL Lactic Acid 3.60 H* (0.7-2.0) mmol/L Total Protein (6.3-8.2) g/dL Albumin (3.9-5) g/dL Urine WBC (Auto) 12.0 H (0.0-6.0) /HPF Assessment and Plan Assessment: 1) Severe SIRS with extensive rash: manifested by fever, hypotension, leukocytosis, increased lactate; etiology unclear. DDx. ? Scarlet fever ?toxic shock syndrome from Strep/Staph ?severe allergic reaction (Llanes Jonhsons vs TEN) -Rash is a fine maculopapular with tiny pustules (sandpaper) all over face, neck, chest, back, abdomen, limbs. It is pruritic and skin is painful and drains upon pressing. -Blood cx 01/22 no growth so far 2) Prisoner - [place] correction for 11 months 3) Mild UTI Plan: -f/u blood cultures -urgent skin biopsy -stop zosyn and vanco -start dapto and levaquin -avoid unnecessary drugs -if blood cx are negative for 24h will start solumedrol -close monitoring - may need ICU transfer -contact isolation Discussed with Dr Flores Thanks Chaparrita Garcia MD
[2018-01-24] MEDS: NACL 0.9% 1000 ML 1,000 ML IV SCH ×4 (00:14→22:17)
[2018-01-24 05:57] LABS: Mean Corpuscular HGB Conc 34 % (32-34); Mean Corpuscular Hemoglobin 30 pg (28-32); Mean Corpuscular Volume 88 fl (84-94); Platelet Count 181 K/mm3 (140-440); Red Blood Count 4.33 M/mm3 (3.65-5.03); Red Cell Distribution Width 14.1 % (13.2-15.2)
[2018-01-24 06:16] LABS: BUN/Creatinine Ratio 11; Blood Urea Nitrogen 10 mg/dL (9-20); Calcium 7.1 mg/dL (8.4-10.2); Hemolysis Index 2
[2018-01-24 07:35] LABS: Band Neutrophils # (Manual) 0.1 K/mm3; Eosinophils % (Manual) 0 % (0.0-4.3); Total Cells Counted 100
[2018-01-24 07:36] LABS: Anisocytosis 1+; Ovalocytes 1+
[2018-01-24] MEDS ORDERED: XYLOCAINE 1% 20 mL INFILTRATI ONE (09:00)
--- NOTE | 2018-01-24 10:11 | Progress Note ---
Assessment and Plan Assessment and plan: Generalized skin rash, maculopapular Etiology unclear. Skin biopsy done today SIRS with fever, tachy, low BP On iv Antibiotics UTI. Continue Levaquin Fever On Daptomycin and Levaquin. ID Physician following Full code status. Patient is a prisoner, has law enforcement officials at bedside History Interval history: Rash all over body, Fever Hospitalist Physical - Physical exam Narrative exam: General: Not in acute distress, lying in bed HEENT:Normocephalic, atraumatic Neck:supple,no JVD Lungs: Clear to auscultation bilaterally, no crackles, no wheeze Heart:S1 and S2 regular, no murmurs, rubs or gallop Abd: soft, non tender,non distended, normal bowel sounds Ext: No edema, no clubbing, no cyanosis Neuro: AAO x 3, moves all extremitiies. Skin:maculopapular skin rash , generalized - Constitutional Vitals: Temp Pulse Resp BP Pulse Ox 99.5 F 110 H 18 121/63 99 01/24/18 08:14 01/24/18 08:14 01/24/18 08:14 01/24/18 08:14 01/24/18 08:14 Results - Labs CBC & Chem 7: 01/24/18 05:45 01/24/18 05:45 Labs: Laboratory Last Values WBC 8.9 K/mm3 (4.5-11.0) 01/24/18 05:45 RBC 4.33 M/mm3 (3.65-5.03) 01/24/18 05:45 Hgb 13.0 gm/dl (11.8-15.2) 01/24/18 05:45 Hct 38.0 % (35.5-45.6) D 01/24/18 05:45 MCV 88 fl (84-94) 01/24/18 05:45 MCH 30 pg (28-32) 01/24/18 05:45 MCHC 34 % (32-34) 01/24/18 05:45 RDW 14.1 % (13.2-15.2) 01/24/18 05:45 Plt Count 181 K/mm3 (140-440) 01/24/18 05:45 Borden % (Auto) Motion Study Engineer 01/24/18 05:45 Add Manual Diff Complete 01/24/18 05:45 Total Counted 100 01/24/18 05:45 Seg Neuts % (Manual) 73.0 % (40.0-70.0) H 01/24/18 05:45 Band Neutrophils % 1.0 % 01/24/18 05:45 Lymphocytes % (Manual) 12.0 % (13.4-35.0) L 01/24/18 05:45 Reactive Lymphs % (Man) 0 % 01/24/18 05:45 Monocytes % (Manual) 13.0 % (0.0-7.3) H 01/24/18 05:45 Eosinophils % (Manual) 0 % (0.0-4.3) 01/24/18 05:45 Basophils % (Manual) 1.0 % (0.0-1.8) 01/24/18 05:45 Metamyelocytes % 0 % 01/24/18 05:45 Myelocytes % 0 % 01/24/18 05:45 Promyelocytes % 0 % 01/24/18 05:45 Blast Cells % 0 % 01/24/18 05:45 Nucleated RBC % Not Reportable 01/24/18 05:45 Seg Neutrophils # Man 6.5 K/mm3 (1.8-7.7) 01/24/18 05:45 Band Neutrophils # 0.1 K/mm3 01/24/18 05:45 Lymphocytes # (Manual) 1.1 K/mm3 (1.2-5.4) L 01/24/18 05:45 Abs React Lymphs (Man) 0.0 K/mm3 01/24/18 05:45 Monocytes # (Manual) 1.2 K/mm3 (0.0-0.8) H 01/24/18 05:45 Eosinophils # (Manual) 0.0 K/mm3 (0.0-0.4) 01/24/18 05:45 Basophils # (Manual) 0.1 K/mm3 (0.0-0.1) 01/24/18 05:45 Metamyelocytes # 0.0 K/mm3 01/24/18 05:45 Myelocytes # 0.0 K/mm3 01/24/18 05:45 Promyelocytes # 0.0 K/mm3 01/24/18 05:45 Blast Cells # 0.0 K/mm3 01/24/18 05:45 WBC Morphology Not Reportable 01/24/18 05:45 Hypersegmented Neuts Not Reportable 01/24/18 05:45 Hyposegmented Neuts Not Reportable 01/24/18 05:45 Hypogranular Neuts Not Reportable 01/24/18 05:45 Smudge Cells Not Reportable 01/24/18 05:45 Toxic Granulation Not Reportable 01/24/18 05:45 Toxic Vacuolation Not Reportable 01/24/18 05:45 Dohle Bodies Not Reportable 01/24/18 05:45 Pelger-Huet Anomaly Not Reportable 01/24/18 05:45 René Rods Not Reportable 01/24/18 05:45 Platelet Estimate Appears normal 01/24/18 05:45 Clumped Platelets Not Reportable 01/24/18 05:45 Plt Clumps, EDTA Not Reportable 01/24/18 05:45 Large Platelets Not Reportable 01/24/18 05:45 Giant Platelets Not Reportable 01/24/18 05:45 Platelet Satelliting Not Reportable 01/24/18 05:45 Plt Morphology Comment Not Reportable 01/24/18 05:45 RBC Morphology Not Reportable 01/24/18 05:45 Dimorphic RBCs Not Reportable 01/24/18 05:45 Polychromasia Not Reportable 01/24/18 05:45 Hypochromasia Not Reportable 01/24/18 05:45 Poikilocytosis Not Reportable 01/24/18 05:45 Anisocytosis 1+ 01/24/18 05:45 Microcytosis Not Reportable 01/24/18 05:45 Macrocytosis Not Reportable 01/24/18 05:45 Spherocytes Not Reportable 01/24/18 05:45 Pappenheimer Bodies Not Reportable 01/24/18 05:45 Sickle Cells Not Reportable 01/24/18 05:45 Target Cells Not Reportable 01/24/18 05:45 Tear Drop Cells Not Reportable 01/24/18 05:45 Ovalocytes 1+ 01/24/18 05:45 Helmet Cells Not Reportable 01/24/18 05:45 Weaver-Vandergrift Bodies Not Reportable 01/24/18 05:45 [place] Rings Not Reportable 01/24/18 05:45 Denise Cells Not Reportable 01/24/18 05:45 Bite Cells Not Reportable 01/24/18 05:45 Crenated Cell Not Reportable 01/24/18 05:45 Elliptocytes Rare 01/24/18 05:45 Acanthocytes (Spur) Not Reportable 01/24/18 05:45 Rouleaux Not Reportable 01/24/18 05:45 Hemoglobin C Crystals Not Reportable 01/24/18 05:45 Schistocytes Not Reportable 01/24/18 05:45 Malaria parasites Not Reportable 01/24/18 05:45 Alonzo Bodies Not Reportable 01/24/18 05:45 Hem Pathologist Commnt No 01/24/18 05:45 PT 15.1 Sec. (12.2-14.9) H 01/22/18 23:05 INR 1.13 (0.87-1.13) 01/22/18 23:05 VBG pH 7.319 (7.320-7.420) L 01/22/18 23:05 Sodium 138 mmol/L (137-145) 01/24/18 05:45 Potassium 3.5 mmol/L (3.6-5.0) L D 01/24/18 05:45 Chloride 105.0 mmol/L (98-107) 01/24/18 05:45 Carbon Dioxide 23 mmol/L (22-30) 01/24/18 05:45 Anion Gap 14 mmol/L 01/24/18 05:45 BUN 10 mg/dL (9-20) 01/24/18 05:45 Creatinine 0.9 mg/dL (0.8-1.5) 01/24/18 05:45 Estimated GFR > 60 ml/min 01/24/18 05:45 BUN/Creatinine Ratio 11 % 01/24/18 05:45 Glucose 125 mg/dL (75-100) H 01/24/18 05:45 Lactic Acid 1.80 mmol/L (0.7-2.0) 01/23/18 Unknown Calcium 7.1 mg/dL (8.4-10.2) L D 01/24/18 05:45 Total Bilirubin 0.80 mg/dL (0.1-1.2) 01/22/18 23:05 AST 15 units/L (5-40) 01/22/18 23:05 ALT 25 units/L (7-56) 01/22/18 23:05 Alkaline Phosphatase 48 units/L (35-129) 01/22/18 23:05 C-Reactive Protein 9.70 mg/dL (0.00-1.30) H 01/23/18 00:00 Total Protein 5.4 g/dL (6.3-8.2) L 01/22/18 23:05 Albumin 3.5 g/dL (3.9-5) L 01/22/18 23:05 Albumin/Globulin Ratio 1.8 % 01/22/18 23:05 Urine Color Yellow (Yellow) 01/23/18 04:23 Urine Turbidity Clear (Clear) 01/23/18 04:23 Urine pH 5.0 (5.0-7.0) 01/23/18 04:23 Ur Specific [place] 1.026 (1.003-1.030) 01/23/18 04:23 Urine Protein <15 mg/dl mg/dL (Negative) 01/23/18 04:23 Urine Glucose (UA) Neg mg/dL (Negative) 01/23/18 04:23 Urine Ketones 20 mg/dL (Negative) 01/23/18 04:23 Urine Blood Neg (Negative) 01/23/18 04:23 Urine Nitrite Neg (Negative) 01/23/18 04:23 Urine Bilirubin Neg (Negative) 01/23/18 04:23 Urine Urobilinogen 2.0 mg/dL (<2.0) 01/23/18 04:23 Ur Leukocyte Esterase Mod (Negative) 01/23/18 04:23 Urine WBC (Auto) 12.0 /HPF (0.0-6.0) H 01/23/18 04:23 Urine RBC (Auto) 7.0 /HPF (0.0-6.0) 01/23/18 04:23 U Epithel Cells (Auto) 1.0 /HPF (0-13.0) 01/23/18 04:23 Hyaline Casts 4 /LPF 01/23/18 04:23 Urine Mucus Few /HPF 01/23/18 04:23 RPR Nonreactive (Nonreactive) 01/23/18 10:50 HIV 1&2 Antibody Rapid Non react (Non React) 01/23/18 10:50 HIV P24 Antigen Non react (Non React) 01/23/18 10:50
--- NOTE | 2018-01-24 10:24 | Post Operative Note ---
Date of procedure: 01/24/18 Pre-op diagnosis: systemic erythematous rash Post-op diagnosis: same Findings: Inflammed, dry skin. Underlying subcutaneous tissue was completely normal in appearance and feel. Procedure: Skin Biopsy Procedures, risks, benefits were explained to the patient. Risks include but were not limited to infection, bleeding, pain, injury to surrounding structures , possible need for further surgery in the future, possible poor wound healing. Patient understood and consented to procedure. Timeout was performed. Sterile prep and drape were done. 1% lidocaine was used to anesthetized skin. Elliptical incision was made. It was approximately 3 cm long by half a centimeter wide all the way down to the subcutaneous tissue. Specimens divided in half. Half was placed in permanent solution. The other half was placed fresh in an empty specimen cup per the pathologists instructions. Hemostasis was achieved with pressure. Skin was closed with a 3-0 nylon suture. A combination of vertical mattress and horizontal mattress suture technique was used for closure. Patient tolerated the procedure well. There were no complications. I delivered the specimens myself to the pathology department. Anesthesia: local Surgeon: THEODORE CARBONE Estimated blood loss: minimal Pathology: list (elliptical skin biopsy) Specimen disposition: to lab Condition: stable Disposition: floor
--- NOTE | 2018-01-24 10:36 | Progress Note ---
Assessment and Plan Assessment: 1) Severe SIRS with extensive rash: still fever but better, hypotension and leukocytosis resolved. DDx. ? Scarlet fever ?toxic shock syndrome from Strep/ Staph ?severe allergic reaction (Llanes Jonhsons vs TEN) ?extensive eczema -Rash is a fine maculopapular with tiny pustules (sandpaper) all over face, neck, chest, back, abdomen, limbs. It is pruritic and skin is painful and drains upon pressing. -Blood cx 01/22 no growth so far 2) Prisoner - [place] detention for 11 months 3) Mild UTI Plan: -start IV solumedrol - blood cx negative so far -appreciate Dr Sheppard help -skin biopsy to r/o SJS/TEN -f/u blood cultures -continue dapto and levaquin - D2 -avoid unnecessary drugs -contact isolation Discussed with Dr Sheppard and Dr Pozo Thanks Chaparrita Garcia MD Subjective Date of service: 01/24/18 Principal diagnosis: fever and generalized rash Interval history: Still c/o pruritic rash and painful skin. Tmax 101.4. Micro: blood cx 01/07 neg 01/22 ngtd urine cx 01/07 10-100K mixed bacteria 01/23 neg Abx: zosyn vanco Objective - Exam Narrative Exam: Alert in NAD NC/AT SANTOSH, clear OP no oral lesions Neck no JVD, no LNs Lungs CTA geovanny CV tachycardic Abdomen soft NT ND Ext no e/c/c Skin - fine maculopapular rash with tiny pustules (sandpaper) all over face, neck, chest, back, abdomen, limbs. - Constitutional Vitals: Vital Signs Temp Pulse Resp BP Pulse Ox 99.5 F 110 H 18 121/63 99 01/24/18 08:14 01/24/18 08:14 01/24/18 08:14 01/24/18 08:14 01/24/18 10:00 Temperature -Last 24 Hours Temperature 99.5 F Temperature 99.2 F Temperature 99.3 F Temperature 100.6 F Temperature 101.4 F Temperature 102.7 F - Labs CBC & Chem 7: 01/24/18 05:45 01/24/18 05:45 Labs: Abnormal lab results 01/23/18 01/24/18 01/24/18 Range/Units 00:00 05:45 05:45 Seg Neuts % (Manual) 73.0 H (40.0-70.0) % Lymphocytes % (Manual) 12.0 L (13.4-35.0) % Monocytes % (Manual) 13.0 H (0.0-7.3) % Lymphocytes # (Manual) 1.1 L (1.2-5.4) K/mm3 Monocytes # (Manual) 1.2 H (0.0-0.8) K/mm3 Potassium 3.5 L D (3.6-5.0) mmol/L Glucose 125 H (75-100) mg/dL Calcium 7.1 L D (8.4-10.2) mg/dL C-Reactive Protein 9.70 H (0.00-1.30) mg/dL
[2018-01-24] MEDS: CUBICIN 600 MG in NACL 0.9% 100 ML IV SCH (10:57)
[2018-01-24] MEDS: LEVAQUIN 500MG/100ML 500 MG/100 ML BAG IV SCH (10:57)
[2018-01-24] MEDS: SODIUM CHLORIDE FLUSH SYRINGE 10 ML IV SCH ×2 (10:58→22:18)
--- NOTE | 2018-01-24 11:08 | Consultation ---
History of Present Illness Consult date: 01/24/18 Reason for consult: other (systemic rash) Requesting physician: DENISE FLORES Chief complaint: Generalized skin rash - History of present illness History of present illness: 42-year-old male with a six-week history of a diffuse scaly rash of unknown etiology. Initially thought to be a drug reaction to ibuprofen. However the castillo did not improve once the ibuprofen was discontinued. As a precaution, he was listed as having an allergy to ibuprofen. He reports that he was admitted two weeks ago and started on IV antibiotics. He felt at that time he was getting a little bit better. However, since then, the rashes gotten much worse and is throughout his body. He has never had anything like this before. Past History Past Medical History: No medical history Past Surgical History: No surgical history Social history: no significant social history, other (currently in jail) Family history: diabetes (in both parents) Medications and Allergies Allergies Allergy/AdvReac Type Severity Reaction Status Date / Time ibuprofen Allergy Hives Verified 01/07/18 15:46 Home Medications Medication Instructions Recorded Confirmed Last Taken Type No Known Home Medications [No 01/23/18 01/23/18 Unknown History Reported Home Medications] Active Meds: Active Medications Acetaminophen (Tylenol) 650 mg PO Q4H PRN PRN Reason: Pain MILD(1-3)/Fever >100.5/MILLAN Last Admin: 01/23/18 21:06 Dose: 650 mg Enoxaparin Sodium (Lovenox) 40 mg SUB-Q QDAY VICTOR M Last Admin: 01/23/18 11:21 Dose: 40 mg Sodium Chloride (Nacl 0.9% 1000 Ml) 1,000 mls @ 150 mls/hr IV DIRECT VICTOR M Last Admin: 01/24/18 07:10 Dose: 150 mls/hr Levofloxacin/Dextrose (Levaquin 500mg/100ml) 500 mg in 100 mls @ 100 mls/hr IV Q24HR VICTOR M; Protocol Last Admin: 01/24/18 10:57 Dose: 100 mls/hr Daptomycin 600 mg/ Sodium (Chloride) 100 mls @ 200 mls/hr IV Q24HR VICTOR M; Protocol Last Admin: 01/24/18 10:57 Dose: 200 mls/hr Ondansetron HCl (Zofran) 4 mg IV Q8H PRN PRN Reason: Nausea And Vomiting Oxycodone/Acetaminophen (Percocet 5/325) 1 tab PO Q6H PRN PRN Reason: Pain, Moderate (4-6) Sodium Chloride (Sodium Chloride Flush Syringe 10 Ml) 10 ml IV BID VICTOR M Last Admin: 01/24/18 10:58 Dose: 10 ml Sodium Chloride (Sodium Chloride Flush Syringe 10 Ml) 10 ml IV PRN PRN PRN Reason: LINE FLUSH Review of Systems - Constitutional fever, other (has been shaking for unknown reason), no weight loss, no chills, no sweats, no night sweats - Cardiovascular no chest pain - Respiratory no cough, no shortness of breath - Gastrointestinal no abdominal pain - Genitourinary no dysuria - Integumentary rash, redness, dryness, color changes, no wounds, no boils - Neurological tremors Exam Vital Signs Temp Pulse Resp BP Pulse Ox 101.3 F H 127 H 18 93/54 100 01/22/18 22:34 01/22/18 22:34 01/22/18 22:34 01/22/18 22:34 01/22/18 22:34 - General physical appearance Positive: no distress, no pain, other (diffuse redness and excess dry skin) - Eyes Positive: normal occular movement - Respiratory Positive: normal expansion, normal respiratory effort, clear to auscultation - Cardiovascular Rhythm: regular - Extremities Extremity abnormal: erythema, other (swelling noted of the upper extremities) - Integumentary other (diffuse erythema, dryness, and swelling of upper extremities) - Neurologic Neurologic: alert and oriented to time, place and person, motor strength and sensation are grossly intact - Psychiatric Psychiatric: appropriate mood/affect, intact judgment & insight, cooperative Results - Labs 01/24/18 05:45 01/24/18 05:45 Abnormal lab results 01/23/18 01/24/18 01/24/18 Range/Units 00:00 05:45 05:45 Seg Neuts % (Manual) 73.0 H (40.0-70.0) % Lymphocytes % (Manual) 12.0 L (13.4-35.0) % Monocytes % (Manual) 13.0 H (0.0-7.3) % Lymphocytes # (Manual) 1.1 L (1.2-5.4) K/mm3 Monocytes # (Manual) 1.2 H (0.0-0.8) K/mm3 Potassium 3.5 L D (3.6-5.0) mmol/L Glucose 125 H (75-100) mg/dL Calcium 7.1 L D (8.4-10.2) mg/dL C-Reactive Protein 9.70 H (0.00-1.30) mg/dL Diabetes panel 01/24/18 Range/Units 05:45 Sodium 138 (137-145) mmol/L Potassium 3.5 L D (3.6-5.0) mmol/L Chloride 105.0 (98-107) mmol/L Carbon Dioxide 23 (22-30) mmol/L BUN 10 (9-20) mg/dL Creatinine 0.9 (0.8-1.5) mg/dL Glucose 125 H (75-100) mg/dL Calcium 7.1 L D (8.4-10.2) mg/dL Calcium panel 01/24/18 Range/Units 05:45 Calcium 7.1 L D (8.4-10.2) mg/dL Pituitary panel 01/24/18 Range/Units 05:45 Sodium 138 (137-145) mmol/L Potassium 3.5 L D (3.6-5.0) mmol/L Chloride 105.0 (98-107) mmol/L Carbon Dioxide 23 (22-30) mmol/L BUN 10 (9-20) mg/dL Creatinine 0.9 (0.8-1.5) mg/dL Glucose 125 H (75-100) mg/dL Calcium 7.1 L D (8.4-10.2) mg/dL Adrenal panel 01/24/18 Range/Units 05:45 Sodium 138 (137-145) mmol/L Potassium 3.5 L D (3.6-5.0) mmol/L Chloride 105.0 (98-107) mmol/L Carbon Dioxide 23 (22-30) mmol/L BUN 10 (9-20) mg/dL Creatinine 0.9 (0.8-1.5) mg/dL Glucose 125 H (75-100) mg/dL Calcium 7.1 L D (8.4-10.2) mg/dL Assessment and Plan - Patient Problems (1) Erythematous rash Current Visit: Yes Status: Acute Plan to address problem: Patients stable. We have been requested to do a surgical biopsy of the skin for diagnosis purposes. Procedure, risks, benefits were explained to the patient. Risks included but were not limited to infection, bleeding, pain, injury to surrounding structures, poor wound healing, possible need for further surgery. Patient understood and consented. Fortunately, Dr. Garcia was in the room, and we decided together on biopsy of the left forearm as the best target. Will do procedure at the bedside. time=45min
[2018-01-25] MEDS: NACL 0.9% 1000 ML 1,000 ML IV SCH (04:32)
--- NOTE | 2018-01-25 08:45 | Progress Note ---
Assessment and Plan - Patient Problems (1) Erythematous rash Current Visit: Yes Status: Acute Plan to address problem: Pt stable. s/p left arm skin biopsy - 01/24/18 - POD#1. No signs of complications. Biopsy evaluation in process. Did convey to pathologist that this needs to be processed KARLEY. Dressing may be removed tomorrow and left open to air. Sutures can be removed after POD#14 (Feb 07). If still here, will remove at that time. Otherwise, can be done by [facility]. Please call if there are any questions. Subjective Date of service: 01/25/18 Patient Reports: Positive: other (no complaints involving left arm biopsy site) Objective Vital Signs - 12hr 01/24/18 01/24/18 22:00 22:45 Temperature 99.4 F Pulse Rate 102 H Pulse Rate [ 112 H Right Radial] Respiratory 18 18 Rate Blood Pressure 124/67 O2 Sat by Pulse 99 100 Oximetry - General physical appearance no distress, no pain, other (Increase excess dry skin changes on face) - Respiratory normal expansion, normal respiratory effort - Integumentary other (Left arm appears about the same. Soft. NT. Dressing completely dry. ) - Labs 01/24/18 05:45 01/25/18 06:20 Diabetes panel 01/25/18 Range/Units 06:20 Potassium 3.6 (3.6-5.0) mmol/L Pituitary panel 01/25/18 Range/Units 06:20 Potassium 3.6 (3.6-5.0) mmol/L Adrenal panel 01/25/18 Range/Units 06:20 Potassium 3.6 (3.6-5.0) mmol/L
[2018-01-25] MEDS: LOVENOX SUB-Q SCH ×2 (10:07→23:31)
[2018-01-25] MEDS: LEVAQUIN 500MG/100ML 500 MG/100 ML BAG IV SCH (10:08)
--- NOTE | 2018-01-25 11:03 | Progress Note ---
Assessment and Plan Assessment: 1) Severe SIRS with extensive rash: fever resolved on IV abx, hypotension and leukocytosis resolved. 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 - no better -Blood cx 01/22 no growth so far -CRP=9.7 -HIV neg -RPR neg 2) Prisoner - [place] [facility] for 11 months 3) Mild UTI Plan: -start IV solumedrol today with caution because even though can leas to a rapid response also implicated as potential inciting factors for GPP -consider transfer to a tertiary facilut for [place] of GPP, fisrt line therapy - Cyclosporine or Infliximab for severe case are not available here -rheumatology consult -stop levaquin -continue dapto for now (avoiding common abx as cephalosporines and vanco since he received some of them and rash became worse) Discussed with Dr Nohelia Garcia MD Subjective Date of service: 01/25/18 Principal diagnosis: fever and generalized rash Interval history: Still c/o painful and weeping skin. Tmax 99 Micro: blood cx 01/07 neg 01/22 ngtd urine cx 01/07 10-100K mixed bacteria 01/23 neg Abx: zosyn vanco Objective - Exam Narrative Exam: Alert in NAD NC/AT SANTOSH, clear OP no oral lesions Neck no JVD, no LNs Lungs CTA geovanny CV tachycardic Abdomen soft NT ND Ext no e/c/c Skin - fine maculopapular rash with tiny pustules (sandpaper) all over face, neck, chest, back, abdomen, limbs. - Constitutional Vitals: Vital Signs Temp Pulse Resp BP Pulse Ox 98.9 F 95 H 20 126/66 96 01/25/18 08:16 01/25/18 08:16 01/25/18 08:16 01/25/18 08:16 01/25/18 08:16 Temperature -Last 24 Hours Temperature 98.9 F Temperature 99.4 F Temperature 99.6 F Temperature 99.3 F - Labs CBC & Chem 7: 01/24/18 05:45 01/25/18 06:20
[2018-01-25] MEDS: CUBICIN 600 MG in NACL 0.9% 100 ML IV SCH (11:52)
[2018-01-25] MEDS: SODIUM CHLORIDE FLUSH SYRINGE 10 ML IV SCH ×2 (11:53→22:00)
--- NOTE | 2018-01-25 13:15 | Progress Note ---
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 Staph aureus on wound culture Continue steroids-solumedrol Start Cyclosporine. I discussed with Dr. Garcia and Pharmacist. I discussed with patient and also with law enforcement officers at bedside about possible transfer and they stated I need to call [facility] admin for clearance. SIRS with fever, tachycardia, low BP On iv Antibiotics UTI. Continue Levaquin Fever On Daptomycin and Levaquin. ID Physician following Full code status. Patient is a prisoner, has law enforcement officials at bedside History Interval history: Rash all over body, Fever Hospitalist Physical - Physical exam Narrative exam: General: Not in acute distress, lying in bed HEENT:Normocephalic, atraumatic Neck:supple,no JVD Lungs: Clear to auscultation bilaterally, no crackles, no wheeze Heart:S1 and S2 regular, no murmurs, rubs or gallop Abd: soft, non tender,non distended, normal bowel sounds Ext: No edema, no clubbing, no cyanosis Neuro: AAO x 3, moves all extremitiies. Skin:maculopapular skin rash , generalized - Constitutional Vitals: Temp Pulse Resp BP Pulse Ox 98.9 F 95 H 20 126/66 96 01/25/18 08:16 01/25/18 08:16 01/25/18 08:16 01/25/18 08:16 01/25/18 08:16 Results - Labs CBC & Chem 7: 01/24/18 05:45 01/25/18 06:20 Labs: Laboratory Last Values WBC 8.9 K/mm3 (4.5-11.0) 01/24/18 05:45 RBC 4.33 M/mm3 (3.65-5.03) 01/24/18 05:45 Hgb 13.0 gm/dl (11.8-15.2) 01/24/18 05:45 Hct 38.0 % (35.5-45.6) D 01/24/18 05:45 MCV 88 fl (84-94) 01/24/18 05:45 MCH 30 pg (28-32) 01/24/18 05:45 MCHC 34 % (32-34) 01/24/18 05:45 RDW 14.1 % (13.2-15.2) 01/24/18 05:45 Plt Count 181 K/mm3 (140-440) 01/24/18 05:45 [place] % (Auto) Clinical Biostatistics Director 01/24/18 05:45 Add Manual Diff Complete 01/24/18 05:45 Total Counted 100 01/24/18 05:45 Seg Neuts % (Manual) 73.0 % (40.0-70.0) H 01/24/18 05:45 Band Neutrophils % 1.0 % 01/24/18 05:45 Lymphocytes % (Manual) 12.0 % (13.4-35.0) L 01/24/18 05:45 Reactive Lymphs % (Man) 0 % 01/24/18 05:45 Monocytes % (Manual) 13.0 % (0.0-7.3) H 01/24/18 05:45 Eosinophils % (Manual) 0 % (0.0-4.3) 01/24/18 05:45 Basophils % (Manual) 1.0 % (0.0-1.8) 01/24/18 05:45 Metamyelocytes % 0 % 01/24/18 05:45 Myelocytes % 0 % 01/24/18 05:45 Promyelocytes % 0 % 01/24/18 05:45 Blast Cells % 0 % 01/24/18 05:45 Nucleated RBC % Not Reportable 01/24/18 05:45 Seg Neutrophils # Man 6.5 K/mm3 (1.8-7.7) 01/24/18 05:45 Band Neutrophils # 0.1 K/mm3 01/24/18 05:45 Lymphocytes # (Manual) 1.1 K/mm3 (1.2-5.4) L 01/24/18 05:45 Abs React Lymphs (Man) 0.0 K/mm3 01/24/18 05:45 Monocytes # (Manual) 1.2 K/mm3 (0.0-0.8) H 01/24/18 05:45 Eosinophils # (Manual) 0.0 K/mm3 (0.0-0.4) 01/24/18 05:45 Basophils # (Manual) 0.1 K/mm3 (0.0-0.1) 01/24/18 05:45 Metamyelocytes # 0.0 K/mm3 01/24/18 05:45 Myelocytes # 0.0 K/mm3 01/24/18 05:45 Promyelocytes # 0.0 K/mm3 01/24/18 05:45 Blast Cells # 0.0 K/mm3 01/24/18 05:45 WBC Morphology Not Reportable 01/24/18 05:45 Hypersegmented Neuts Not Reportable 01/24/18 05:45 Hyposegmented Neuts Not Reportable 01/24/18 05:45 Hypogranular Neuts Not Reportable 01/24/18 05:45 Smudge Cells Not Reportable 01/24/18 05:45 Toxic Granulation Not Reportable 01/24/18 05:45 Toxic Vacuolation Not Reportable 01/24/18 05:45 Dohle Bodies Not Reportable 01/24/18 05:45 Pelger-Huet Anomaly Not Reportable 01/24/18 05:45 René Rods Not Reportable 01/24/18 05:45 Platelet Estimate Appears normal 01/24/18 05:45 Clumped Platelets Not Reportable 01/24/18 05:45 Plt Clumps, EDTA Not Reportable 01/24/18 05:45 Large Platelets Not Reportable 01/24/18 05:45 Giant Platelets Not Reportable 01/24/18 05:45 Platelet Satelliting Not Reportable 01/24/18 05:45 Plt Morphology Comment Not Reportable 01/24/18 05:45 RBC Morphology Not Reportable 01/24/18 05:45 Dimorphic RBCs Not Reportable 01/24/18 05:45 Polychromasia Not Reportable 01/24/18 05:45 Hypochromasia Not Reportable 01/24/18 05:45 Poikilocytosis Not Reportable 01/24/18 05:45 Anisocytosis 1+ 01/24/18 05:45 Microcytosis Not Reportable 01/24/18 05:45 Macrocytosis Not Reportable 01/24/18 05:45 Spherocytes Not Reportable 01/24/18 05:45 Pappenheimer Bodies Not Reportable 01/24/18 05:45 Sickle Cells Not Reportable 01/24/18 05:45 Target Cells Not Reportable 01/24/18 05:45 Tear Drop Cells Not Reportable 01/24/18 05:45 Ovalocytes 1+ 01/24/18 05:45 Helmet Cells Not Reportable 01/24/18 05:45 [place] Bodies Not Reportable 01/24/18 05:45 [place] Rings Not Reportable 01/24/18 05:45 [place] Cells Not Reportable 01/24/18 05:45 Bite Cells Not Reportable 01/24/18 05:45 Crenated Cell Not Reportable 01/24/18 05:45 Elliptocytes Rare 01/24/18 05:45 Acanthocytes (Spur) Not Reportable 01/24/18 05:45 Rouleaux Not Reportable 01/24/18 05:45 Hemoglobin C Crystals Not Reportable 01/24/18 05:45 Schistocytes Not Reportable 01/24/18 05:45 Malaria parasites Not Reportable 01/24/18 05:45 Alonzo Bodies Not Reportable 01/24/18 05:45 Hem Pathologist Commnt No 01/24/18 05:45 PT 15.1 Sec. (12.2-14.9) H 01/22/18 23:05 INR 1.13 (0.87-1.13) 01/22/18 23:05 VBG pH 7.319 (7.320-7.420) L 01/22/18 23:05 Sodium 138 mmol/L (137-145) 01/24/18 05:45 Potassium 3.6 mmol/L (3.6-5.0) 01/25/18 06:20 Chloride 105.0 mmol/L (98-107) 01/24/18 05:45 Carbon Dioxide 23 mmol/L (22-30) 01/24/18 05:45 Anion Gap 14 mmol/L 01/24/18 05:45 BUN 10 mg/dL (9-20) 01/24/18 05:45 Creatinine 0.9 mg/dL (0.8-1.5) 01/24/18 05:45 Estimated GFR > 60 ml/min 01/24/18 05:45 BUN/Creatinine Ratio 11 % 01/24/18 05:45 Glucose 125 mg/dL (75-100) H 01/24/18 05:45 Lactic Acid 1.80 mmol/L (0.7-2.0) 01/23/18 Unknown Calcium 7.1 mg/dL (8.4-10.2) L D 01/24/18 05:45 Total Bilirubin 0.80 mg/dL (0.1-1.2) 01/22/18 23:05 AST 15 units/L (5-40) 01/22/18 23:05 ALT 25 units/L (7-56) 01/22/18 23:05 Alkaline Phosphatase 48 units/L (35-129) 01/22/18 23:05 C-Reactive Protein 9.70 mg/dL (0.00-1.30) H 01/23/18 00:00 Total Protein 5.4 g/dL (6.3-8.2) L 01/22/18 23:05 Albumin 3.5 g/dL (3.9-5) L 01/22/18 23:05 Albumin/Globulin Ratio 1.8 % 01/22/18 23:05 Urine Color Yellow (Yellow) 01/23/18 04:23 Urine Turbidity Clear (Clear) 01/23/18 04:23 Urine pH 5.0 (5.0-7.0) 01/23/18 04:23 Ur Specific [place] 1.026 (1.003-1.030) 01/23/18 04:23 Urine Protein <15 mg/dl mg/dL (Negative) 01/23/18 04:23 Urine Glucose (UA) Neg mg/dL (Negative) 01/23/18 04:23 Urine Ketones 20 mg/dL (Negative) 01/23/18 04:23 Urine Blood Neg (Negative) 01/23/18 04:23 Urine Nitrite Neg (Negative) 01/23/18 04:23 Urine Bilirubin Neg (Negative) 01/23/18 04:23 Urine Urobilinogen 2.0 mg/dL (<2.0) 01/23/18 04:23 Ur Leukocyte Esterase Mod (Negative) 01/23/18 04:23 Urine WBC (Auto) 12.0 /HPF (0.0-6.0) H 01/23/18 04:23 Urine RBC (Auto) 7.0 /HPF (0.0-6.0) 01/23/18 04:23 U Epithel Cells (Auto) 1.0 /HPF (0-13.0) 01/23/18 04:23 Hyaline Casts 4 /LPF 01/23/18 04:23 Urine Mucus Few /HPF 01/23/18 04:23 RPR Nonreactive (Nonreactive) 01/23/18 10:50 HIV 1&2 Antibody Rapid Non react (Non React) 01/23/18 10:50 HIV P24 Antigen Non react (Non React) 01/23/18 10:50
[2018-01-25] MEDS: NEORAL PO SCH ×2 (22:00)
[2018-01-26] MEDS: NACL 0.9% 1000 ML 1,000 ML IV SCH (02:55)
[2018-01-26 07:10] LABS: Hematocrit 35.4 % (35.5-45.6); Hemoglobin 11.6 gm/dl (11.8-15.2); Mean Corpuscular HGB Conc 33 % (32-34); Mean Corpuscular Hemoglobin 29 pg (28-32); Mean Corpuscular Volume 89 fl (84-94); Platelet Count 226 K/mm3 (140-440); Red Cell Distribution Width 14.3 % (13.2-15.2)
[2018-01-26 07:24] LABS: BUN/Creatinine Ratio 10; Blood Urea Nitrogen 7 mg/dL (9-20); Hemolysis Index 4
--- NOTE | 2018-01-26 09:17 | Progress Note ---
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 Staph aureus on wound culture Continue steroids-solumedrol Started Cyclosporine 125mg po bid. I discussed with Dr. Garcia and Pharmacist before initiating. I discussed with patient and also with law enforcement officers at bedside about possible transfer and they stated I need to call [facility] admin for clearance. called, discussed with Dr. Stevens. patient doing better. Will keep here for now SIRS with fever, tachycardia, low BP Improving On iv Antibiotics UTI. Continue Levaquin Fever resolved On Daptomycin. ID Physician following Full code status. Patient is a prisoner, has law enforcement officials at bedside History Interval history: Feels better, Rash all over body,improved No more fever Hospitalist Physical - Physical exam Narrative exam: General: Not in acute distress, lying in bed HEENT:Normocephalic, atraumatic Neck:supple,no JVD Lungs: Clear to auscultation bilaterally, no crackles, no wheeze Heart:S1 and S2 regular, no murmurs, rubs or gallop Abd: soft, non tender,non distended, normal bowel sounds Ext: No edema, no clubbing, no cyanosis Neuro: AAO x 3, moves all extremitiies. Skin:maculopapular skin rash , generalized - Constitutional Vitals: Temp Pulse Resp BP Pulse Ox 97.8 F 98 H 19 123/72 100 01/26/18 07:00 01/26/18 07:00 01/26/18 07:00 01/26/18 07:00 01/26/18 07:00 Results - Labs CBC & Chem 7: 01/26/18 06:45 01/26/18 06:45 Labs: Laboratory Last Values WBC 11.8 K/mm3 (4.5-11.0) H 01/26/18 06:45 RBC 4.00 M/mm3 (3.65-5.03) 01/26/18 06:45 Hgb 11.6 gm/dl (11.8-15.2) L 01/26/18 06:45 Hct 35.4 % (35.5-45.6) L 01/26/18 06:45 MCV 89 fl (84-94) 01/26/18 06:45 MCH 29 pg (28-32) 01/26/18 06:45 MCHC 33 % (32-34) 01/26/18 06:45 RDW 14.3 % (13.2-15.2) 01/26/18 06:45 Plt Count 226 K/mm3 (140-440) 01/26/18 06:45 [place] % (Auto) Layout Man 01/24/18 05:45 Add Manual Diff Complete 01/24/18 05:45 Total Counted 100 01/24/18 05:45 Seg Neuts % (Manual) 73.0 % (40.0-70.0) H 01/24/18 05:45 Band Neutrophils % 1.0 % 01/24/18 05:45 Lymphocytes % (Manual) 12.0 % (13.4-35.0) L 01/24/18 05:45 Reactive Lymphs % (Man) 0 % 01/24/18 05:45 Monocytes % (Manual) 13.0 % (0.0-7.3) H 01/24/18 05:45 Eosinophils % (Manual) 0 % (0.0-4.3) 01/24/18 05:45 Basophils % (Manual) 1.0 % (0.0-1.8) 01/24/18 05:45 Metamyelocytes % 0 % 01/24/18 05:45 Myelocytes % 0 % 01/24/18 05:45 Promyelocytes % 0 % 01/24/18 05:45 Blast Cells % 0 % 01/24/18 05:45 Nucleated RBC % Not Reportable 01/24/18 05:45 Seg Neutrophils # Man 6.5 K/mm3 (1.8-7.7) 01/24/18 05:45 Band Neutrophils # 0.1 K/mm3 01/24/18 05:45 Lymphocytes # (Manual) 1.1 K/mm3 (1.2-5.4) L 01/24/18 05:45 Abs React Lymphs (Man) 0.0 K/mm3 01/24/18 05:45 Monocytes # (Manual) 1.2 K/mm3 (0.0-0.8) H 01/24/18 05:45 Eosinophils # (Manual) 0.0 K/mm3 (0.0-0.4) 01/24/18 05:45 Basophils # (Manual) 0.1 K/mm3 (0.0-0.1) 01/24/18 05:45 Metamyelocytes # 0.0 K/mm3 01/24/18 05:45 Myelocytes # 0.0 K/mm3 01/24/18 05:45 Promyelocytes # 0.0 K/mm3 01/24/18 05:45 Blast Cells # 0.0 K/mm3 01/24/18 05:45 WBC Morphology Not Reportable 01/24/18 05:45 Hypersegmented Neuts Not Reportable 01/24/18 05:45 Hyposegmented Neuts Not Reportable 01/24/18 05:45 Hypogranular Neuts Not Reportable 01/24/18 05:45 Smudge Cells Not Reportable 01/24/18 05:45 Toxic Granulation Not Reportable 01/24/18 05:45 Toxic Vacuolation Not Reportable 01/24/18 05:45 Dohle Bodies Not Reportable 01/24/18 05:45 Pelger-Huet Anomaly Not Reportable 01/24/18 05:45 René Rods Not Reportable 01/24/18 05:45 Platelet Estimate Appears normal 01/24/18 05:45 Clumped Platelets Not Reportable 01/24/18 05:45 Plt Clumps, EDTA Not Reportable 01/24/18 05:45 Large Platelets Not Reportable 01/24/18 05:45 Giant Platelets Not Reportable 01/24/18 05:45 Platelet Satelliting Not Reportable 01/24/18 05:45 Plt Morphology Comment Not Reportable 01/24/18 05:45 RBC Morphology Not Reportable 01/24/18 05:45 Dimorphic RBCs Not Reportable 01/24/18 05:45 Polychromasia Not Reportable 01/24/18 05:45 Hypochromasia Not Reportable 01/24/18 05:45 Poikilocytosis Not Reportable 01/24/18 05:45 Anisocytosis 1+ 01/24/18 05:45 Microcytosis Not Reportable 01/24/18 05:45 Macrocytosis Not Reportable 01/24/18 05:45 Spherocytes Not Reportable 01/24/18 05:45 Pappenheimer Bodies Not Reportable 01/24/18 05:45 Sickle Cells Not Reportable 01/24/18 05:45 Target Cells Not Reportable 01/24/18 05:45 Tear Drop Cells Not Reportable 01/24/18 05:45 Ovalocytes 1+ 01/24/18 05:45 Helmet Cells Not Reportable 01/24/18 05:45 [place] One Bodies Not Reportable 01/24/18 05:45 [place] Rings Not Reportable 01/24/18 05:45 [place] Cells Not Reportable 01/24/18 05:45 Bite Cells Not Reportable 01/24/18 05:45 Crenated Cell Not Reportable 01/24/18 05:45 Elliptocytes Rare 01/24/18 05:45 Acanthocytes (Spur) Not Reportable 01/24/18 05:45 Rouleaux Not Reportable 01/24/18 05:45 Hemoglobin C Crystals Not Reportable 01/24/18 05:45 Schistocytes Not Reportable 01/24/18 05:45 Malaria parasites Not Reportable 01/24/18 05:45 Alonzo Bodies Not Reportable 01/24/18 05:45 Hem Pathologist Commnt No 01/24/18 05:45 PT 15.1 Sec. (12.2-14.9) H 01/22/18 23:05 INR 1.13 (0.87-1.13) 01/22/18 23:05 VBG pH 7.319 (7.320-7.420) L 01/22/18 23:05 Sodium 143 mmol/L (137-145) 01/26/18 06:45 Potassium 3.9 mmol/L (3.6-5.0) 01/26/18 06:45 Chloride 111.5 mmol/L (98-107) H 01/26/18 06:45 Carbon Dioxide 27 mmol/L (22-30) 01/26/18 06:45 Anion Gap 8 mmol/L 01/26/18 06:45 BUN 7 mg/dL (9-20) L 01/26/18 06:45 Creatinine 0.7 mg/dL (0.8-1.5) L 01/26/18 06:45 Estimated GFR > 60 ml/min 01/26/18 06:45 BUN/Creatinine Ratio 10 % 01/26/18 06:45 Glucose 159 mg/dL (75-100) H 01/26/18 06:45 Lactic Acid 1.80 mmol/L (0.7-2.0) 01/23/18 Unknown Calcium 8.0 mg/dL (8.4-10.2) L 01/26/18 06:45 Total Bilirubin 0.80 mg/dL (0.1-1.2) 01/22/18 23:05 AST 15 units/L (5-40) 01/22/18 23:05 ALT 25 units/L (7-56) 01/22/18 23:05 Alkaline Phosphatase 48 units/L (35-129) 01/22/18 23:05 C-Reactive Protein 9.70 mg/dL (0.00-1.30) H 01/23/18 00:00 Total Protein 5.4 g/dL (6.3-8.2) L 01/22/18 23:05 Albumin 3.5 g/dL (3.9-5) L 01/22/18 23:05 Albumin/Globulin Ratio 1.8 % 01/22/18 23:05 Urine Color Yellow (Yellow) 01/23/18 04:23 Urine Turbidity Clear (Clear) 01/23/18 04:23 Urine pH 5.0 (5.0-7.0) 01/23/18 04:23 Ur Specific [place] 1.026 (1.003-1.030) 01/23/18 04:23 Urine Protein <15 mg/dl mg/dL (Negative) 01/23/18 04:23 Urine Glucose (UA) Neg mg/dL (Negative) 01/23/18 04:23 Urine Ketones 20 mg/dL (Negative) 01/23/18 04:23 Urine Blood Neg (Negative) 01/23/18 04:23 Urine Nitrite Neg (Negative) 01/23/18 04:23 Urine Bilirubin Neg (Negative) 01/23/18 04:23 Urine Urobilinogen 2.0 mg/dL (<2.0) 01/23/18 04:23 Ur Leukocyte Esterase Mod (Negative) 01/23/18 04:23 Urine WBC (Auto) 12.0 /HPF (0.0-6.0) H 01/23/18 04:23 Urine RBC (Auto) 7.0 /HPF (0.0-6.0) 01/23/18 04:23 U Epithel Cells (Auto) 1.0 /HPF (0-13.0) 01/23/18 04:23 Hyaline Casts 4 /LPF 01/23/18 04:23 Urine Mucus Few /HPF 01/23/18 04:23 RPR Nonreactive (Nonreactive) 01/23/18 10:50 HIV 1&2 Antibody Rapid Non react (Non React) 01/23/18 10:50 HIV P24 Antigen Non react (Non React) 01/23/18 10:50
[2018-01-26] MEDS: NEORAL PO SCH ×4 (09:43→22:12)
[2018-01-26] MEDS: LOVENOX SUB-Q SCH (09:44)
[2018-01-26] MEDS: SODIUM CHLORIDE FLUSH SYRINGE 10 ML IV SCH ×2 (09:44→22:12)
[2018-01-26] MEDS: CUBICIN 600 MG in NACL 0.9% 100 ML IV SCH (12:33)
[2018-01-27 08:54] VITALS: BP 129/84
[2018-01-27] MEDS: CUBICIN 600 MG in NACL 0.9% 100 ML IV SCH (10:22)
[2018-01-27] MEDS: LOVENOX SUB-Q SCH (10:23)
[2018-01-27] MEDS: NEORAL PO SCH ×2 (10:23)
[2018-01-27] MEDS: SODIUM CHLORIDE FLUSH SYRINGE 10 ML IV SCH (10:24)
--- NOTE | 2018-01-27 11:16 | Discharge Summary ---
Providers - Providers Date of Admission: 01/23/18 04:10 Date of discharge: 01/27/18 Attending physician: USMAN SHAH 01/23/18 13:05 Consult to Physician [CONS] Routine Comment: Consulting Provider: MARY LOZADA Physician Instructions: Reason For Exam: generalized rash 01/23/18 16:37 Consult to Physician [CONS] Routine Comment: Consulting Provider: YULI RANDALL Physician Instructions: Reason For Exam: skin biopsy Hospitalization Condition: Fair Disposition: [id number]-[address]/[facility]W E[facility]C[facility] - Discharge Diagnoses (1) Generalized pustular psoriasis Status: Acute Core Measure Documentation - Palliative Care Palliative Care/ Comfort Measures: Not Applicable - Core Measures Any of the following diagnoses?: none Exam - Constitutional Vitals: Temp Pulse Resp BP Pulse Ox 98.1 F 83 19 129/84 98 01/27/18 07:40 01/27/18 07:40 01/27/18 07:40 01/27/18 07:40 01/27/18 07:40 Plan Activity: advance as tolerated Diet: regular Additional Instructions: 1.Follow up with Physician at [facility] in 1-2 days. 2.Follow up with Apprenticeship Consultant in 3-5 days to continue management of psoriasis. 3.Cyclosporine 125mg po bid prescription given. Dose to be adjusted by Apprenticeship Consultant. Follow up with: PRIMARY CARE, [Referring] - 3-5 Days Prescriptions: Cephalexin [Keflex] 500 mg PO Q12HR #14 cap cycloSPORINE, MODIFIED [Neoral] 100 mg PO Q12HR #60 capsule cycloSPORINE, MODIFIED [Neoral] 25 mg PO Q12HR #60 capsule diphenhydrAMINE [Benadryl CAP] 25 mg PO Q6HR PRN #20 capsule PRN Reason: Itching Prednisone [predniSONE 5 mg (6-Day Pack, 21 Tabs)] 5 mg PO .TAPER #1 tab.ds.pk
--- NOTE | 2018-01-27 12:10 | Progress Note ---
Assessment and Plan Assessment: 1) Severe SIRS with extensive rash: resolved. Skin biopsy showed likely Generalized Pustular Psoariasis (GPP) vs. pustular eczematous dermatitis likely with superimposed bacterial infection as biopsy culture grew MSSA. -Initial Rash was a fine maculopapular with tiny pustules (sandpaper) all over face, neck, chest, back, abdomen, limbs. - no better -Blood cx 01/22 no growth so far -CRP=9.7 -HIV neg -RPR neg 2) Prisoner - [place] correction for 11 months 3) Mild UTI Plan: -continue PO Cyclosporine -stop daptomycin -start keflex 500 mg PO QID total 7 days -rheumatology vs. dermatology f/u in 1 week I am signing off Discussed with Dr Pozo Thanks Chaparrita Garcia MD Subjective Date of service: 01/27/18 Principal diagnosis: fever and generalized rash Interval history: Remarkable improvement, fever resolved, rash improving, no itching, no skin pain. Micro: blood cx 01/07 neg 01/22 ngtd urine cx 01/07 10-100K mixed bacteria 01/23 neg Skin biopsy: 01/25 MSSA Abx: dapto Objective - Exam Narrative Exam: Alert in NAD NC/AT SANTOSH, clear OP no oral lesions Neck no JVD, no LNs Lungs CTA geovanny CV tachycardic Abdomen soft NT ND Ext no e/c/c Skin - fine maculopapular rash drying out. - Constitutional Vitals: Vital Signs Temp Pulse Resp BP Pulse Ox 98.1 F 83 19 129/84 98 01/27/18 07:40 01/27/18 07:40 01/27/18 07:40 01/27/18 07:40 01/27/18 07:40 Temperature -Last 24 Hours Temperature 98.1 F Temperature 98.4 F Temperature 98.6 F Temperature 97.9 F - Labs CBC & Chem 7: 01/26/18 06:45 01/26/18 06:45
[2018-01-27] MEDS ORDERED: TRIPLE ANTIBIOTIC TP NR (12:45)
[2018-01-31 11:15] LABS: ANA Screen, IFA Negative (Negative)
== END 2018-01-27 15:15 | disposition home or self-care (01) | DRG 607 ==
LOC: ED 22:32 → EEVIPCON 22:32 → 3A 01-23 04:10
PROVIDERS: ADMIT Internal Medicine; ATTEND Internal Medicine
PROC: 02HV33Z Insertion of Infusion Device into Superior Vena Cava, Percutaneous Approach (ICD-10-PCS; 2018-01-23)
PROC: B548ZZA Ultrasonography of Superior Vena Cava, Guidance (ICD-10-PCS; 2018-01-23)
PROC: 0JBH0ZX Excision of Left Lower Arm Subcutaneous Tissue and Fascia, Open Approach, Diagnostic (ICD-10-PCS; principal; 2018-01-24)
DX: L40.1 Generalized pustular psoriasis (principal); N39.0 Urinary tract infection, site not specified; R65.10 Systemic inflammatory response syndrome (SIRS) of non-infectious origin without acute organ dysfunction; L30.9 Dermatitis, unspecified; Z88.8 Allergy status to other drugs, medicaments and biological substances; Z82.49 Family history of ischemic heart disease and other diseases of the circulatory system; Z83.3 Family history of diabetes mellitus
CPT/HCPCS: 36415; 71045; 80048; 80053; 81001; 82140; 82805; 84132; 85007; 85025; 85027; 85610; 86038; 86140; 86160; 86403; 86592; 87040; 87086; 87102; 87116; 87186; 87806; 88304; 88305; 93005; 93010; 96361; 96365; 96366; 96375; A6250; J0878; J1650; J1956; J2405; J2543; J2930; J3370; J7030; J7040; J7502; J7515